=== PATIENT | female | born 1995 | race Two or more races ===

== ENCOUNTER 2021-12-27 10:56 | Emergency (ER) | payer OTHER ==
--- OUTSIDE RECORDS SUMMARY | 2021-12-27 11:01 | XMS REPORT | Continuity of Care Document ---
:1995 Author Organization [facility] t Address [address] [place] [address] Care Team Providers Name Role Phone José Del Real Primary Care Physician Yannick Garcia Attending Clinician Unavailable Kaden Haywood Attending Clinician Unavailable KONG Attending Clinician Unavailable ZITA Attending Clinician Unavailable Attending Clinician Unavailable Singer GILLIAM Attending Clinician Kaden BRADLEY Attending Clinician Unavailable Kaden Bradley DO Attending Clinician Gabrielle Falcon Attending Clinician Unavailable Todd RODRIGUEZ Attending Clinician Unavailable Gabrielle LOVELL Attending Clinician Unavailable SAMI Attending Clinician Unavailable Kong PAPPAS Attending Clinician José Del Real Attending Clinician José Huggins Attending Clinician Unavailable Attending Clinician Unavailable Peyton Moseley MD Attending Clinician Catarino Scott MD Attending Clinician Fellow, [facility] Attending Clinician Unavailable Nilesh PAPPAS Attending Clinician SOFYA HAY Attending Clinician Unavailable Physician, Primary or Family Admitting Clinician Unavailtyrone Phan Admitting Clinician Unavailable Kaden Haywood Admitting Clinician Unavailable KONG Admitting Clinician Unavailable Payers Payer Name Policy Type Policy Number Effective Date Expiration Date S deborah [employer] [id number] 2020 HEALTH CHOICE 00:00:00 MEDICAID COMMUNITY [id number] 2020 [facility] [employer] 00:00:00 [facility] CHC/STAR [id number] [place] [facility] O Advance Directives Directive Decision Effective Termination Comments Source Date Date Healthcare Agents on N/A Univ ersity FileNameRelationshipHealthcare [facility] Agent Medical RelationshipCommunicationTaduke health Branch BurkeMotherHealth Care [phone] (Mobile) [email or web address] Condition Condition Condition Status Onset Resolution Last Treating Co mments Source Name Details Category Date Date Treatment Clinician Date Anemia of Anemia of Disease Active 2020-09 Uni vers mother in mother [place] 03 [place] 00 [place]ical condition condition Bran ch History of History of Disease Active U nivers alcohol alcohol 6-21 ity of abuse abuse 00:00: [place] [address] Medical Branch Heartburn Heartburn Disease Active Uni vers in in 4-26 [place] second [place] second 00 Medi molly trimester trimester Bran ch H/O H/O Disease Active Univers maternal maternal 4-07 ity of cardiomyop cardiomyop [place] athy, athy, 00 Medical currently currently Bran ch Rubella Rubella Disease Active Univers non-immune non-immune 10-30 it y of status, status, 00:00: [place] antepartum antepartum 00 Me dical Branch Abnormal Abnormal Disease Active Unive rs maternal maternal 3-01 ity of glucose glucose 00:00: [place] tolerance, tolerance, 00 Me dical antepartum antepartum Br anch Refused Refused Disease Active Univers influenza influenza 2-25 ity of vaccine vaccine 00:00: [place] [address] Medical Branch UTI in UTI in Disease Active Univers , , 2-25 it y of antepartum antepartum [place] , first , first 00 Medical trimester trimester Bran ch ICD ICD Disease Active 2019-09 Univers (implantab (implantab 1-24 it y of le le 00:00: [place] cardiovert cardiovert 00 Me dical er-defibri er-defibri Br anch llator) in llator) in place place Provoked Provoked Disease Active 2019-09 Unive rs seizure seizure 1-16 ity of 00:00: [place] Medical [facility] Alcohol Alcohol Disease Active 2019-09 Univers withdrawal withdrawal 0-13 it y of 00:00: [place] [address] Medical Branch Obesity Obesity Disease Active Univers (BMI (BMI 8-25 ity of 30-39.9) 30-39.9) 00:00: [place] [address] Medical Branch Acute Acute Disease Active Univers pancreatit pancreatit 8-25 it y of is is 00:00: [place] 00 Medical Branch Obesity in Obesity in Disease Active U nivers 8-25 ity of 00:00: [place] [address] Medical Branch Need for Need for Disease Active Overview: Un ricky MMR MMR 6- Formattin ity of vaccine vaccine 00:00: g of this [place] 00 note Medical might be Branch different from the original. Rubella non immune on 01/30/17-of vero vaccine at next visit Supervisio Supervisio Disease Resolve 2020-12-25 2020-12-25 Univers n of other n of other d 2-25 00:00:00 14:59:36 [place]y of high risk high risk 00:[place] , , 00 Me dical antepartum antepartum Br anch Candidiasi Candidiasi Disease Resolve 2016-092020-10-26 2020-10-26 Univers s of vulva s of vulva d 0-20 00:00:00 16:20:33 ity of and vagina and vagina [place] 00 [place] Contracept Contracept Disease Resolve 20172020-10-26 2020-10-26 Univers eliazar eliazar d 0-05 00:00:00 16:20:21 ity of management management [place] Vaginal Vaginal Disease Resolve 2016-092020-10-26 2020-10-26 Univers discharge discharge d 0-05 00:00:00 16:20:31 ity of 00:00: [place] 00 Medical Branch Vaginal Vaginal Disease Resolve 2020-10-26 2020-10-26 Univers bleeding, bleeding, d 02-19 00:00:00 16:20:29 ity of abnormal abnormal 00:00: [place] 00 Medical Branch Well woman Well woman Disease Resolve 2020-10-26 2020-10-26 Univers exam exam d 01-30 00:00:00 16:20:02 ity of 00:00: [place] 00 Medical Branch Morbid Morbid Disease Resolve 2020-10-26 2020-10-26 Univers obesity obesity d 01-30 00:00:00 16:20:14 ity of with BMI with BMI 00:00: [place] of of 00 Medical 40.0-44.9, 40.0-44.9, Br anch adult adult Bacterial Bacterial Disease Resolve 2020-10-26 2020-10-26 Univers vaginosis vaginosis d 01-30 00:00:00 16:20:38 ity of 00:00: [place] 00 Medical Branch Acute Acute Disease Resolve 2017-01-30 2017-01-30 Univers otitis otitis d 3-02 00:00:00 21:24:44 ity of externa of externa of 00:[place] right ear, right ear, 00 Me dical unspecifie unspecifie Br anch d type d type Allergies, Adverse Reactions, Alerts Allergy Allergy Status Severity Reaction(s) Onset Inactive Treating Comm ents Source Name Type Date Date Clinician No Known DA Active U [facility] [place] 00:[facility]: [facility] 00 are [place] No Known DA Active U [facility] 04-06 [place] 00:[place]: [facility] 00 are [place] No Known DA Active U 2019-09 [facility] [place] 00:[place]: [address] No Known DA Active U 2019-09 [facility] [place] 00:[facility] 00 [facility] No Known DA Active U 2020- [facility] - [place] 00:[facility] [facility] 00 [facility] No Known DA Active U 2020- [facility] [place] 00:[facility]: [facility] 00 [facility] NO KNOWN Drug Active Univers ALLERGIE Class ity of S [facility] Social History Social Habit Start Date Stop Date Quantity Comments Source ASSERTION [facility] Exposure to 2021-12-16 2021-12-26 Not sure [facility] SARS-CoV-2 00:00:00 06:42:00 [place] Medical (event) Branch Alcohol intake 2021-12-26 2021-12-26 Current drinker Unive rsity of 00:00:00 00:00:00 of alcohol [place] Medical (finding) Branch History SDOH 2020-10-26 2020-10-26 5 University o f Alcohol Frequency 00:00:00 00:00:00 [place] M edical Branch History SDOH 2020-10-26 2020-10-26 3 University o f Alcohol Binge 00:00:00 00:00:00 [place] Medic al Branch History SDOH 2020-06-14 2020-06-14 99 University o f Alcohol Std 00:00:00 00:00:00 [place] Medical Drinks Branch Alcohol Comment 2020-06-14 2020-06-14 1 pint of liquor Uni versity of 00:00:00 00:00:00 daily [facility] Tobacco use and 2016-10-08 2016-10-08 Never used Universit y of exposure 00:00:00 00:00:00 [facility] Sex [birth year] At [birth year] Universit y of 00:00:00 00:00:00 [facility] Smoking Status Start Date Stop Date Source Unknown if ever smoked [facility] Never smoker [facility] Medications Ordered Filled Start Stop Current Ordering Indication Dosage Frequency Signature Comments Components Source Medication Medication Date Date Medication? Clinician (SIG) Name Name iopamidol 2021- No [id number] 100mL 100 mL, Univers (ISOVUE 12-26 Intravenou ity o f 370-500 mL) 14:45: 14:45 s, ONCE, 1 [place] injection 00 :00 dose, On Medica l 100 mL Wed Branch 12/26/21 at 0945, Routine ibuprofen No 600mg 600 mg, Uni vers (IBU) 12-26 Oral, ity of tablet 600 13:00: 11:59 ONCE, 1 [place] mg 00 :00 dose, On Medical Wed Branch 12/26/21 at 0800, VJ NaCl 0.9% No 1000mL at 999 Uni vers (NS) bolus 12-26 mL/hr, ity of infusion 12:15: 14:55 1,000 mL, [place] 1,000 mL 00 :00 IV Medical Infusion, Branch ONCE, 1 dose, On Fri12/26/21 at 0715, STAT ketorolac No 30mg 30 mg, Unive rs (TORADOL) 12-24 Slow IV ity of injection 12:15: 11:16 Push, [place] 30 mg 00 :00 ONCE, 1 Medical dose, On Branch Fri12/24/21 at 0715, VJ FENTanyl PF No 50ug 50 mcg, Un ricky (SUBLIMAZE 12-24 Slow IV ity o f (PF)) 11:30: 10:29 Push, [place] injection 00 :00 ONCE, 1 Medical 50 mcg dose, On Branch Fri12/24/21 at 0630, Routine predniSONE 2021- Yes [id number] 50mg Take 5 Univers 10 mg 4-23 01- 9100 tablets by ity of tablet 00:00: 04:59 mouth [place] 00 :00 daily for Medical 5 days. Branch predniSONE 2021- Yes [id number] 50mg Take 5 Univers 10 mg 4-25 05- 9100 tablets by ity of tablet 00:00: 04:59 mouth [place] 00 :00 daily for Medical 5 days. Branch loratadine Yes [id number] 10mg Take 1 Univers 10 mg 2-25 tablet by ity of tablet 00:00: mouth [place] 00 daily. Medical Branch loratadine Yes [id number] 10mg Take 1 Univers 10 mg 2-25 tablet by ity of tablet 00:00: mouth [place] 00 daily. Medical Branch norgestimat 2020-09 Yes [id number] 1{tbl} Take 1 Univers e-ethinyl 2-01 tablet by ity o f estradioL 00:00: mouth [place] (TRI-LO-SPR 00 daily. Medica l INTEC) Branch 0.18/0.215/ 0.25 mg-25 mcg tablet norgestimat 2020-09 Yes [id number] 1{tbl} Take 1 Univers e-ethinyl 2-01 tablet by ity o f estradioL 00:00: mouth [place] (TRI-LO-SPR 00 daily. Medica l INTEC) Branch 0.18/0.215/ 0.25 mg-25 mcg tablet amoxicillin 2020-09 Yes Univer s 875 mg 1-30 ity of tablet 00:00: [place] 00 Medical Branch amoxicillin 2020-09 Yes Univer s 875 mg 1-30 ity of tablet 00:00: [place] 00 Medical Branch MAGNESIUM 2020-09 Yes Take by [facility] ers ORAL 0-20 mouth. ity of 15:02: [place] [address] Medical Branch MAGNESIUM 2020-09 Yes Take by [facility] ers ORAL 0-20 mouth. ity of 15:02: [place] [address] Medical Branch 2020-09 Yes [id number] 1{tbl} Take 1 Univers vitamin 0-15 tablet by ity of w/FA tablet 00:00: mouth [place] 00 daily. Medical Branch docusate 2020-09 Yes [id number] 240mg Take 1 U nivers calcium 240 0-15 capsule by it y of mg capsule 00:00: mouth [place] 00 daily as Medical needed for Branch Constipati on. ferrous 2020-09 Yes [id number] 325mg Take 1 Un ricky sulfate 325 0-15 tablet by ity of mg (65 mg 00:00: mouth 2 [place] iron) 00 (two) Medical tablet times Branch daily. ibuprofen 2020-09 Yes [id number] 600mg Take 1 Univers 600 mg 0-15 tablet by ity of tablet 00:00: mouth [place] 00 every 6 Medical (six) Branch hours as needed (Pain). Take with food or milk. 2020-09 Yes [id number] 1{tbl} Take 1 Univers vitamin 0-15 tablet by ity of w/FA tablet 00:00: mouth [place] 00 daily. Medical Branch docusate 2020-09 Yes [id number] 240mg Take 1 U nivers calcium 240 0-15 capsule by it y of mg capsule 00:00: mouth [place] 00 daily as Medical needed for Branch Constipati on. ferrous 2020-09 Yes [id number] 325mg Take 1 Un ricky sulfate 325 0-15 tablet by ity of mg (65 mg 00:00: mouth 2 [place] iron) 00 (two) Medical tablet times Branch daily. ibuprofen 2020-09 Yes [id number] 600mg Take 1 Univers 600 mg 0-15 tablet by ity of tablet 00:00: mouth [place] 00 every 6 Medical (six) Branch hours as needed (Pain). Take with food or milk. 2020-09 Yes [id number] 1{tbl} Take 1 Univers vitamin 0-15 tablet by ity of w/FA tablet 00:00: mouth [place] 00 daily. Medical Branch 2020-09 Yes [id number] 1{tbl} Take 1 Univers vitamin 0-15 tablet by ity of w/FA tablet 00:00: mouth [place] 00 daily. Medical Branch PROAIR HFA Yes INHALE 2 Uni vers 90 8-09 PUFFS BY ity of mcg/actuati 00:00: MOUTH [place] on inhaler 00 EVERY 4 Medica l HOURS Branch NEEDED DYSPNEA WHEEZING PROAIR HFA Yes INHALE 2 Uni vers 90 8-09 PUFFS BY ity of mcg/actuati 00:00: MOUTH [place] on inhaler 00 EVERY 4 Medica l HOURS Branch NEEDED DYSPNEA WHEEZING metoprolol Yes [id number] 25mg Take 1 Univers succinate 6-21 9104 tablet by ity o f XL (TOPROL 00:00: mouth [place] XL) 25 mg 00 daily. Medical 24 hr Branch tablet metoprolol Yes [id number] 25mg Take 1 Univers succinate 6-21 9104 tablet by ity o f XL (TOPROL 00:00: mouth [place] XL) 25 mg 00 daily. Medical 24 hr Branch tablet metoprolol Yes [id number] 25mg Take 1 Univers succinate 6-21 9104 tablet by ity o f XL (TOPROL 00:00: mouth [place] XL) 25 mg 00 daily. Medical 24 hr Branch tablet metoprolol Yes [id number] 25mg Take 1 Univers succinate 6-21 9104 tablet by ity o f XL (TOPROL 00:00: mouth [place] XL) 25 mg 00 daily. Medical 24 hr Branch tablet metoprolol Yes 25mg QD Take 25 mg M ethodi succinate 5-[address] XL 05:46: daily. [facility]osp[facility] (TOPROL-XL) 22 l 25 mg 24 hr tablet Yes H/O 1{tbl} Take 1 Unive rs Vit 5-04 maternal tablet by ity of Comb.10-Iro 00:00: cardiomyopa mouth [place] n-FA 00 thy, daily. Medical (VITAFOL-OB currently [facility] ) 65-1 mg Tab FLUoxetine Yes 10mg Take 10 mg U nivers (PROZAC) 10 3-29 by mouth ity of mg capsule 18:28: daily. [place] 13 Medical Branch metoprolol Yes Chest pain, 25mg Take 1 Univers succinate 3-24 unspecified tablet by ity of XL (TOPROL 00:00: type mouth [place] XL) 25 mg 00 daily. Medical 24 hr Branch tablet Immunizations Ordered Filled Immunization Date Status Comments [facility] e Immunization Name Name TDAP 2021-03-19 Completed University of 00:00:00 [facility] TDAP 2021-03-19 Completed University of 00:00:00 [facility] TDAP 2021-03-19 Completed University of 00:00:00 [facility] TDAP 2021-03-19 Completed University of 00:00:00 [facility] HPV 2017-01-30 Completed University of 00:00:00 [facility] HPV 2017-01-30 Completed University of 00:00:00 [facility] HPV 2017-01-30 Completed University of 00:00:00 [facility] HPV 2017-01-30 Completed University of 00:00:00 [facility] HPV 2017-01-30 Completed University of 00:00:00 [facility] HPV 2015-07-31 Completed University of 00:00:00 [facility] HPV 2015-07-31 Completed University of 00:00:00 [facility] HPV 2015-07-31 Completed University of 00:00:00 [facility] HPV 2015-07-31 Completed University of 00:00:00 [facility] Td 2010-09-01 Completed University of 00:00:00 [facility] Td 2010-09-01 Completed University of 00:00:00 [place] [facility] Td 2010-09-01 Completed University of 00:00:00 [place] [facility] Td 2010-09-01 Completed University of 00:00:00 [place] [facility] Td 2010-09-01 Completed University of 00:00:00 [place] [facility] HPV 2007-11-26 Completed University of 00:00:00 [place] [facility] HPV 2007-11-26 Completed University of 00:00:00 [place] [facility] HPV 2007-11-26 Completed University of 00:00:00 [place] [facility] HPV 2007-11-26 Completed University of 00:00:00 [place] [facility] HPV 2007-08-13 Completed University of 00:00:00 [place] [facility] HPV 2007-08-13 Completed University of 00:00:00 [place] [facility] HPV 2007-08-13 Completed University of 00:00:00 [facility] Branch HPV 2007-08-13 Completed University of 00:00:00 [facility] Vital Signs Vital Name Observation Time Observation Value Comments Source Systolic blood 2021-12-26 17:00:00 122 mm[Hg] Univer sity of pressure [facility] Diastolic blood 2021-12-26 17:00:00 78 mm[Hg] Unive rsity of pressure [facility] Heart rate 2021-12-26 17:00:00 101 /min [facility] Body temperature 2021-12-26 17:00:00 36.89 Pari [facility] Res[facility] rate 2021-12-26 17:00:00 18 /min [facility] Oxygen saturation in 2021-12-26 17:00:00 97 /min [facility] Arterial blood by [facility] Pulse oximetry [place] Body height 2021-12-26 11:45:00 149.9 cm [facility] Body weight 2021-12-26 11:45:00 81.647 kg [facility] BMI 2021-12-26 11:45:00 36.36 kg/m2 [facility] Systolic blood 2021-12-24 12:00:00 118 mm[Hg] Univer sity of pressure [facility] Diastolic blood 2021-12-24 12:00:00 65 mm[Hg] Unive rsity of pressure [facility] Heart rate 2021-12-24 12:00:00 107 /min Universi ty of [place] Medical [place] Respiratory rate 2021-12-24 12:00:00 18 /min Univ ersity [facility] Oxygen saturation in 2021-12-24 12:00:00 99 /min University of Arterial blood by [facility] Pulse oximetry Branch Body temperature 2021-12-24 10:12:00 37.94 Pari Univ ersity of [facility] Body height 2021-12-24 10:12:00 149.9 cm Universi ty of [facility] Body weight 2021-12-24 10:12:00 81.647 kg Universi ty of [facility] BMI 2021-12-24 10:12:00 36.36 kg/m2 Universi ty of [facility] Systolic blood 2021-08-01 19:32:00 141 mm[Hg] Univer sity of pressure [facility] Diastolic blood 2021-08-01 19:32:00 94 mm[Hg] Unive rsity of [facility] Heart rate 2021-08-01 19:32:00 96 /min Universi ty of [facility] Body temperature 2021-08-01 19:30:00 36.11 Pari Univ ersity [facility] Respiratory rate 2021-08-01 19:30:00 18 /min Univ ersity of [facility] Body height 2021-08-01 19:30:00 149.9 cm Universi ty of [place] [facility] [place] Body weight 2021-08-01 19:30:00 86.955 kg Universi ty of [place] [facility] [place] BMI 2021-08-01 19:30:00 38.72 kg/m2 Universi ty of [facility] Diastolic blood 2021-01-17 05:56:00 56 mm[Hg] [facility] pressure Heart rate 2021-01-17 05:56:00 99 /min [facility] Respiratory rate 2021-01-17 05:56:00 17 /min [facility] Oxygen saturation in 2021-01-17 05:56:00 99 /min [facility] Arterial blood by Pulse oximetry Systolic blood 2021-01-17 05:56:00 106 mm[Hg] [facility] pressure Body temperature 2021-01-17 02:43:14 36.5 Pari [facility] Body height 2021-01-17 02:37:00 149.9 cm [facility] Body weight 2021-01-17 02:37:00 77.111 kg [facility] BMI 2021-01-17 02:37:00 34.34 kg/m2 [facility] Procedures Procedure Date / Time Performing Clinician Source Performed RAPID STREP SCREEN FOR 2021-12-26 16:15:00 [facility]io [facility] GROUP A [facility] LACTIC ACID WHOLE BLOOD 2021-12-26 15:01:00 Singer [facility] CT CHEST PULMONARY 2021-12-26 13:36:22 Singer [facility] ANGIOGRAM [facility] XR CHEST 1 VW 2021-12-26 12:40:58 Singer [facility] LACTIC ACID WHOLE BLOOD 2021-12-26 12:27:00 Singer [facility] LIPASE 2021-12-26 12:26:00 Singer [facility] TROPONIN I 2021-12-26 12:26:00 Singer [facility] COMP. METABOLIC PANEL 2021-12-26 12:26:00 [facility] ([id number]) [facility] CBC WITH DIFF 2021-12-26 12:26:00 Singer [facility] D-DIMER 2021-12-26 12:26:00 Singer [facility] URINALYSIS 2021-12-26 12:26:00 Singer [facility] RAPID INFLUENZA A/B 2021-12-26 12:26:00 Marcio Morgan [facility] N-TERMINAL PRO-BNP 2021-12-26 12:26:00 Singer Marcio [facility] COVID-19 (ID NOW RAPID 2021-12-26 12:26:00 [facility]io [facility] TESTING) [facility] POCT TEST 2021-12-26 11:57:00 Bora Mcdonough [facility] CONSENT/REFUSAL FOR 2021-12-26 11:35:45 Doctor Unassigned, No Un [facility] DIAGNOSIS AND TREATMENT Name [facility] XR WRIST 3+ VW RIGHT 2021-12-24 10:47:04 Janet Bradley [facility] COMP. METABOLIC PANEL 2021-12-24 10:29:00 Janet Bradley [facility] ([id number]) [facility] SEDIMENTATION RATE 2021-12-24 10:29:00 Janet Bradley [facility] sity [facility] CBC WITH DIFF 2021-12-24 10:29:00 Janet Bradley [facility] NOTICE OF PRIVACY 2021-12-24 10:07:44 Doctor Unassigned, No [facility] PRACTICES Name [facility] CONSENT/REFUSAL FOR 2021-12-24 10:05:24 Doctor Unassigned, No [facility] DIAGNOSIS AND TREATMENT Name [facility] US LIMITED 2021-01-17 05:29:20 [facility] HCG QUANTITATIVE, SERUM 2021-01-17 04:55:00 [facility] RH TYPE 2021-01-17 04:55:00 [facility] HC COMPLETE BLD COUNT 2021-01-17 04:27:00 [facility] W/AUTO DIFF Jos[place] BASIC METABOLIC PANEL 2021-01-17 04:27:00 [facility] Joselyn ESTIMATED GFR 2021-01-17 04:27:00 [facility] Joselyn SMEAR REVIEW 2021-01-17 04:27:00 [facility] Joselyn URINE CULTURE 2021-01-17 03:50:00 [facility] Joselyn URINALYSIS SCREEN AND 2021-01-17 03:50:00 [facility] MICROSCOPY, WITH REFLEX Joselyn TO CULTURE Plan of Care Planned Activity Planned Date Details Comments Source Future Scheduled 2023-10-26 Screening for [facility] [place] Test 00:00:00 malignant neoplasm of Medica l Branch cervix (procedure) [code = 018120960] Future Scheduled 2021-10-26 Screening for [facility] [place] Test 00:00:00 Chlamydia trachomatis Medica l Branch (procedure) [code = 696681860] Future Scheduled 2021-10-26 Depression screening Uni versity [facility] Test 00:00:00 (procedure) [code = Medical Branch 591669816] Future Scheduled 2021-05-02 [facility] (Season Ended) [code Medical Branch = INFLUENZA VACCINE (Season Ended)] Future Scheduled 2012 SARS-CoV-2 (COVID-19) Un iversity [facility] Test 00:00:00 Vaccine (1) [code = Medical Branch SARS-CoV-2 (COVID-19) Vaccine (1)] Future Scheduled 2007 DTaP,Tdap,and Td Univers ity [facility] Test 00:00:00 Vaccines (2 - Tdap) Medical Branch [code = DTaP,Tdap,and Td Vaccines (2 - Tdap)] Future Scheduled 2002 [facility]OCOCCAL 0-64 [facility]00 YEARS COMBINED SERIES Medica l Branch (1 of 1 - PPSV23) [code = PNEUMOCOCCAL 0-64 YEARS COMBINED SERIES (1 of 1 - PPSV23)] Future Scheduled COVID-19 [facility] ([facility] [code = COVID-19 VACCINE (1)] Future Scheduled Hepatitis C screening [facility] Test (procedure) [code = 827507695] Future Scheduled Screening for [facility] Test malignant neoplasm of cervix (procedure) [code = 511170345] Future Scheduled [facility]ACCINE [facility] [code = INFLUENZA VACCINE] Encounters Start End Encounter Admission Attending Care Care Encounter Source Date/Time Date/Time Type Type Clinicians Facility Department ID 2021-12-24 Outpatient [facility] [place] 11:17:11 [id number] [facility] 2021-11-24 Outpatient [facility] [place] 13:51:47 [id number] [facility] 2021-01-16 Inpatient [facility] [id number] [facility] 19:48:00 [id number] [facility] [facility] 2020-06-23 Inpatient EM Al HCACR OBSE [id number] [facility] 08:56:00 Radha [id number] Jonathon Hood [facility] 2020-06-22 Inpatient HCACR ALISON [id number] [facility] 14:31:00 [id number] [facility] 2020-05-11 Inpatient EMELIA Haywood, HCACR TELE [id number] [facility] 00:13:00 John [id number] [facility] 2020-05-10 Inpatient HCACR ALISON [id number] H[facility] 21:35:00 [id number] [facility] 2022-03-29 2022-03-29 [facility] [id number] -[id number] Univers 11:40:00 11:40:00 PRASHANT [id number] [facility] 2022-03-26 2022-03-26 [facility] [id number] -20 Univers 13:00:00 13:00:00 PRASHANT [id number] [facility] 2022-03-15 2022-03-15 [facility] [id number] -[id number] Univers 09:20:00 09:20:00 PRASHANT [id number] [facility] 2022-01-02 2022-01-02 [facility] [id number] -20 Univers 10:20:00 10:20:00 TUCKER [id number] ity o f [facility] 2021-12-26 2021-12-26 Emergency X SINGER [facility] ERT [id number] Univers 06:48:00 12:21:00 MARCIO davison [facility] 2021-12-26 2021-12-26 Emergency [facility] [id number] Univers 06:48:00 12:21:00 Marcio CARLOS 350.1.13.10 i ty [facility] 4.2.7.2.686 [facility] [id number] [place] [address] [place] 2021-12-24 2021-12-24 [facility] [id number] Univers 05:16:00 07:32:00 JANET davison [facility] 2021-12-24 2021-12-24 [facility] 1.2.840.114 [id number] [facility] 05:16:00 07:32:00 Janet CARLOS 350.1.13.10 [facility] 4.2.7.2.686 [facility] [id number] [address] 2021-12-04 2021-12-04 Outpatient Todd AHUMADA [facility] [id number] Univers 13:00:00 13:00:00 TUCKER ity o [facility] 2021-11-02 2021-11-02 Emergency EM Terrie, HCANC ALISON [id number] H[facility] 18:35:00 21:46:00 Daniel [id number] Isacct on [facility] 2021-11-02 2021-11-02 Emergency EM Terrie, HCANC HCANC [id number] HCA 18:35:00 21:46:00 Daniel 82 Janett on [facility] 2021-10-30 2021-10-30 Outpatient Todd RODRIGUEZ [facility] [id number] -20 Univers 08:15:00 08:15:00 KEELEY [id number] ity o [facility] 2021-10-26 2021-10-26 Outpatient Todd LOVELL [facility] [id number] Univers 13:00:00 13:26:35 WONDIFUL y [facility] 2021-10-26 2021-10-26 [facility] [id number]-20 Univers 13:00:00 13:00:00 WONDIFUL [id number] ity o [facility] 2021-09-25 2021-09-25 Outpatient Todd GALLARDO [facility] [id number] -[id number] Univers 15:15:00 15:15:00 KEVIN [id number] [facility] 2021-09-25 2021-09-25 Outpatient Todd GALLARDO [facility] [id number] Univers 15:15:00 15:15:00 KEVIN [facility] 2021-09-21 2021-09-21 Outpatient Todd GALLARDO [facility] [id number] -20 Univers 14:45:00 14:45:00 KEVIN [id number] [facility] 2021-09-21 2021-09-21 Outpatient R GALLARDO, [facility] [id number] Univers 14:45:00 14:45:00 KEVIN [facility] 2021-09-14 2021-09-14 [facility] [id number] Univers 09:16:37 23:59:00 [facility] 2021-09-14 2021-09-14 Hospital [facility] 1.2.840.114 [id number] Univers 09:16:37 23:59:00 Encounter Prashant BREANNA 350.1.13.10 ity [facility] [place]2.7.2.[place] [id number] Mt dical [facility] 844 [facility] 2021-09-14 2021-09-14 Outpatient [facility] [id number] -20 Univers 09:20:00 09:20:00 PRASHANT [id number] [facility] 2021-09-07 2021-09-07 Outpatient R [facility] [id number] -20 Univers 09:20:00 09:20:00 PRASHANT [id number] [facility] 2021-09-07 2021-09-07 Outpatient [facility] [id number] Univers 09:20:00 09:20:00 PRASHANT [facility] 2021-08-01 2021-08-01 Office [facility] 1.2.840.114 [id number] Univers 13:18:50 14:31:25 Visit Nadeen Kumar STOREROOM ATTENDANT [facility]1.13.10 [facility].2.7.2.686 Bill as MATERNAL [id number] Med ical & CHILD [address] [place] [address] 2021-07-31 2021-07-31 Emergency X KIRK [facility] ERT [id number] Univers 18:21:00 18:44:00 JANET [facility] 2021-04-06 2021-04-06 Emergency EM VANDANA Huggins ALISON [id number] [facility] 17:20:00 20:52:[address] 2021-04-03 2021-04-03 Routine [facility] 1.2.840.114 [id number] 15:30:57 16:03:13 Nadeen Kumar STOREROOM ATTENDANT 350.1.13.10 Visit REGIONAL 4.2.7.2.686 MATERNAL [id number] & CHILD 110 [facility] 2021-03-30 2021-03-30 Case Esther [facility] 1.2.840.114 [id number] 00:00:00 00:00:00 Management Nadeen Kumar STOREROOM ATTENDANT 350.1.13.10 REGIONAL 4.2.7.2.686 MATERNAL [id number] & CHILD 122 [facility] 2021-03-28 2021-03-28 Ballroom Dance Instructor Sarabjit Patel [facility] 1.2.840.114 [id number] 15:03:08 15:35:08 Visit STOREROOM ATTENDANT 350.1.13.10 REGIONAL 4.2.7.2.686 MATERNAL [id number] & CHILD 369 [facility] 2021-03-28 2021-03-28 Anesthesia NUNO Moseley 1.2.840.114 [id number] 14:18:23 14:18:23 Event Juanita AGOSTO 350.1.13.10 [facility] 4.2.7.2.686 [id number] 022 2021-01-16 2021-01-17 Emergency [place] 1.2.840.1 [id number] Methodi 23:17:00 02:58:00 , Kalyani [address] [facility] 3.430.2.7 Hospit a .3.163973 l .8 2021-01-16 2021-01-16 Travel 1.2.840.1 [id number] [id number] Methodi 00:00:00 00:00:[address] 3.430.2.7 0.2.7.3.698 Ho spita .3.713366 084.8 l .8 Results Test Description Test Time Test Comments Results Result Comments Source LIPASE 2021-12-26 15:51:31 Test Item Value Reference Range Interpretation Comme nts LIPASE (test code = 4765892212) 12 U/L 0-220 Lab Interpretation (test code = 69435-1) Normal [facility] [id number] 13:10:16 Test Item Value Reference Interpretation Comments Range TROPONIN I (test 0.013 ng/mL See_Comment [Automated code = 7737221756) message] The system which generated this result transmitted reference range : <=0.034. The reference range was not used to interpret this result as normal/abnormal . GAUTAM (test code = Reference (Normal) GAUTAM) Range (defined by the 99th percentile reference limit): <= 0.034 ng/mL Note: Cardiac troponin begins to rise 3-4 hours after the onset of ischemia. Repeat in 4-6 hours if the sample was drawn within 3-4 hours of the onset of the symptom and found normal. Diagnosis of myocardial injury is made with acute changes in cTn concentrations with at least one serial sample above the 99th percentile upper reference limit (URL), taken together with the patient's clinical presentation. Biotin has been reported to cause a negative bias, interpret results relative to patient's use of biotin. Lab Interpretation Normal (test code = 98852-9) [facility] [id number] 13:06:55 Test Item Value Reference Range Interpretation Comments NT-proBNP (test code 297 pg/mL See_Comment H [Autom ated = 7181877357) message] The system which generated this result transmitted reference range : <=125. The reference range was not used to interpret this result as normal/abnormal . GAUTAM (test code = GAUTAM) Biotin has been reported to cause a negative bias, interpret results relative to patient's use of biotin. Lab Interpretation Abnormal (test code = 89070-0) [facility] METABOLIC PANEL (59375)2021-12-26 12:58:32 Test Item Value Reference Range Interpretation Comments NA (test code = 138 mmol/L 135-145 0550363144) K (test code = 3.6 mmol/L 3.5-5.0 9607240313) CL (test code = 103 mmol/L 98-108 7177940917) CO2 TOTAL (test code = 22 mmol/L 23-31 L 0210543831) AGAP (test code = 2-16 9911076737) BUN (test code = 11 mg/dL 7-23 7863671840) GLUCOSE (test code = 116 mg/dL 70-110 H 8784663069) CREATININE (test code = 0.80 mg/dL 0.50-1.04 4857223413) TOTAL BILI (test code = 0.7 mg/dL 0.1-1.2 3106250243) CALCIUM (test code = 8.7 mg/dL 8.6-10.6 3911756868) T PROTEIN (test code = 7.5 g/dL 6.3-8.2 9087795898) ALBUMIN (test code = 4.1 g/dL 3.5-5.0 4591657836) ALK PHOS (test code = 125 U/L 34-122 H 2981645436) ALTv (test code = 13 U/L 5-35 2-6) AST(SGOT) (test code = 19 U/L 13-40 4538517537) eGFR (test code = mL/min/1.73m2 1690689475) GAUTAM (test code = GAUTAM) Association of Glomerular Filtration Rate (GFR) and Staging of Kidney Disease* + --+ --+ ------+| GFR (mL/min/1.73 m2) ?| With Kidney Damage ?| ?Without Kidney Damage+ --------+ --------+ +| ?>90 ?| ?Stage one ?| ? Normal ?+ ---+ ---+ -------+| ?60-89 ?| ?Stage two ?| ? Decreased GFR ? + --+ --+ ------+| ?30-59 ?| ?Stage three ?| ? Stage three ? + --+ --+ ------+| ?15-29 ?| ?Stage four ? | ? Stage four ?+ ---+ ---+ -------+| ?<15 (or dialysis) ? ?| ?Stage five ? | ? Stage five ?+ ---+ ---+ -------+ *Each stage assumes the associated GFR level has been in effect for at least three months. ?Stages 1 to 5, with or without kidney disease, indicate chronic kidney disease. Notes: Determination of stages one and two (with eGFR >59mL/min/1.73 m2) requires estimation of kidney damage for at least three months as defined by structural or functional abnormalities of the kidney, manifested by either:Pathological abnormalities or Markers of kidney damage (including abnormalities in the composition of the blood or urine or abnormalities in imaging tests). Lab Interpretation Abnormal (test code = 93095-6) [facility]anoD-[id number] 12:57:56 Test Item Value Reference Interpretation Comments Range D-DIMER (test code = See_Comment H [Autom ated 8394627210) message] The system which generated this result transmitted reference range : <0.41 ?g/mL (FEU). The reference range was not used to interpret this result as normal/abnormal . GAUTAM (test code = This test may be GAUTAM) used in conjunction with a clinical pretest probability (PTP) assessment model to exclude venous thromboembolism (VTE) in patients suspected of deep venous thrombosis (DVT) and pulmonary embolism (PE) A D-Dimer value less than 0.50 ?g/ml (FEU) has a negative predicative value of 96 to 100% (95% CI)and 97 to 100% (95% CI) as an aid in the diagnosis of deep vein thrombosis (DVT) and pulmonary embolism when there is low or moderate pretest probability of PE or DVT. D-Dimer values are expressed in initial fibrinogen equivalent units (FEU)" The assay results should be used with other information, including the clinical context, in forming a diagnosis. Lab Interpretation Abnormal (test code = 22682-2) [facility] WITH [id number] 12:44:53 Test Item Value Reference Range Interpretation Comments WBC (test code = See_Comment H [Automated 1790-2) message] The system which generated this result transmit justice reference range : 4.30 - 11.10 10*3/?L. The reference range was not used to interpret this result as normal/abnormal . RBC (test code = See_Comment [Automated 399-8) message] The system which generated this result transmit justice reference range : 3.93 - 5.25 10*6/?L. The reference range was not used to interpret this result as normal/abnormal . HGB (test code = 11.1 g/dL 11.6-15.0 L 718-7) HCT (test code = 36.0 % 35.7-45.2 4544-3) MCV (test code = 75.6 fL 80.6-95.5 L 787-2) MCH (test code = 23.3 pg 25.9-32.8 L 785-6) MCHC (test code = 30.8 g/dL 31.6-35.1 L 786-4) RDW-SD (test code = 39.6 fL 39.0-49.9 42632-2) RDW-CV (test code = 14.6 % 12.0-15.5 788-0) PLT (test code = See_Comment [Automated 777-3) message] The system which generated this result transmit justice reference range : 166 - 358 10*3/ ?L. The reference range was not u sed to interpret th is result as normal/abnormal . MPV (test code = 10.2 fL 9.5-12.9 20382-2) NRBC/100 WBC (test See_Comment [Automat ed code = 6983842228) message] The system which generated this result transmit justice reference range : 0.0 - 10.0 /100 WBCs. The reference range was not used to interpret this result as normal/abnormal . NRBC x10^3 (test code <0.01 See_Comment [Auto mated = 5918816158) message] The system which generated this result transmit justice reference range : 10*3/?L. The reference range was not used to interpret this result as normal/abnormal . GRAN MAT (NEUT) % 83.2 % (test code = 770-8) IMM GRAN % (test code 0.80 % = 7585860664) LYMPH % (test code = 9.0 % 736-9) MONO % (test code = 6.8 % 5905-5) EOS % (test code = 0.1 % 713-8) BASO % (test code = 0.1 % 706-2) GRAN MAT x10^3(ANC) 12.92 10*3/uL 1.88-7.09 H (test code = 2498880150) IMM GRAN x10^3 (test 0.12 10*3/uL 0.00-0.06 H code = 7207311685) LYMPH x10^3 (test code 1.39 10*3/uL 1.32-3.29 = 731-0) MONO x10^3 (test code 1.05 10*3/uL 0.33-0.92 H = 742-7) EOS x10^3 (test code = <0.03 0.03-0.39 L 711-2) BASO x10^3 (test code <0.03 0.01-0.07 = 704-7) Lab Interpretation Abnormal (test code = 12658-5) [facility] [id number] 11:57:00 Test Item Value Reference Range Interpretation Comments POCT PREG (test code = 1605) Negative On board controls acceptable with Present C Line (test code = 3574) POCT PREG LOT # (test code = HCG [id number] 2998) POCT PREG TEST DATE (test 05/31/2023 code = 3576) Lab Interpretation (test code = Normal 57385-1) [facility]. METABOLIC PANEL (20655)2021-12-24 10:59:11 Test Item Value Reference Range Interpretation Comments NA (test code = 136 mmol/L 135-145 0356113599) K (test code = 4.0 mmol/L 3.5-5.0 5757509570) CL (test code = 99 mmol/L 98-108 1690572225) CO2 TOTAL (test code = 24 mmol/L 23-31 3889369880) AGAP (test code = 2-16 3926886751) BUN (test code = 15 mg/dL 7-23 5646782133) GLUCOSE (test code = 121 mg/dL 70-110 H 6274657185) CREATININE (test code = 0.97 mg/dL 0.50-1.04 1564812037) TOTAL BILI (test code = 0.6 mg/dL 0.1-1.8 7529524875) CALCIUM (test code = 7.8 mg/dL 8.6-10.6 L 5242660689) T PROTEIN (test code = 7.6 g/dL 6.3-8.2 5629060985) ALBUMIN (test code = 4.4 g/dL 3.5-5.0 8829912228) ALK PHOS (test code = 133 U/L 34-122 H 9074880795) ALTv (test code = 16 U/L 5-35 1742-6) AST(SGOT) (test code = 24 U/L 13-40 7219623938) eGFR (test code = mL/min/1.73m2 7444746602) GAUTAM (test code = GAUTAM) Association of Glomerular Filtration Rate (GFR) and Staging of Kidney Disease* + --+ --+ ------+| GFR (mL/min/1.73 m2) ?| With Kidney Damage ?| ?Without Kidney Damage+ --------+ --------+ +| ?>90 ?| ?Stage one ?| ? Normal ?+ ---+ ---+ -------+| ?60-89 ?| ?Stage two ?| ? Decreased GFR ? + --+ --+ ------+| ?30-59 ?| ?Stage three ?| ? Stage three ? + --+ --+ ------+| ?15-29 ?| ?Stage four ? | ? Stage four ?+ ---+ ---+ -------+| ?<15 (or dialysis) ? ?| ?Stage five ? | ? Stage five ?+ ---+ ---+ -------+ *Each stage assumes the associated GFR level has been in effect for at least three months. ?Stages 1 to 5, with or without kidney disease, indicate chronic kidney disease. Notes: Determination of stages one and two (with eGFR >59mL/min/1.73 m2) requires estimation of kidney damage for at least three months as defined by structural or functional abnormalities of the kidney, manifested by either:Pathological abnormalities or Markers of kidney damage (including abnormalities in the composition of the blood or urine or abnormalities in imaging tests). Lab Interpretation Abnormal (test code = 34759-7) [facility]anoSEDIMENT[facility] [id number] 10:53:59 Test Item Value Reference Range Interpretation Comments ESR (test code = See_Comment H [Automated message] 1687327822) The system Mobile[employer] generated this result transmitted ref erence range: 0 - 20 m m/HR. The reference r john was not used to interpret this result as normal/abnor mal. Lab Interpretation (test Abnormal code = 57028-3) [facility] WITH [id number] 10:35:25 Test Item Value Reference Range Interpretation Comments WBC (test code = See_Comment [Automated 6690-2) message] The sy stem which generated this result transmitted reference range : 4.30 - 11.10 10*3/?L. The reference range was not used to interpret this result as normal/abnormal . RBC (test code = See_Comment [Automated 789-8) message] The sy stem which generated this result transmitted reference range : 3.93 - 5.25 10*6/?L. The reference range was not used to interpret this result as normal/abnormal . HGB (test code = 11.5 g/dL 11.6-15.0 L 718-7) HCT (test code = 37.1 % 35.7-45.2 4544-3) MCV (test code = 75.4 fL 80.6-95.5 L 787-2) MCH (test code = 23.4 pg 25.9-32.8 L 785-6) MCHC (test code = 31.0 g/dL 31.6-35.1 L 786-4) RDW-SD (test code = 40.6 fL 39.0-49.9 15431-5) RDW-CV (test code = 14.7 % 12.0-15.5 788-0) PLT (test code = See_Comment [Automated 777-3) message] The sy stem which generated this result transmitted reference range : 166 - 358 10*3/ ?L. The reference r john was not used to interpret this result as normal/abnormal . MPV (test code = 9.6 fL 9.5-12.9 01895-0) NRBC/100 WBC (test See_Comment [Automat ed code = 8950042390) message] The system which generated this result transmitted reference range : 0.0 - 10.0 /100 WBCs. The refer ence range was not u sed to interpret th is result as normal/abnormal . NRBC x10^3 (test code <0.01 See_Comment [Auto mated = 6994704516) message] The s ystem which generated this result transmitted reference range : 10*3/?L. The reference range was not used to interpret this result as normal/abnormal . GRAN MAT (NEUT) % 71.4 % (test code = 770-8) IMM GRAN % (test code 0.60 % = 2383778314) LYMPH % (test code = 15.6 % 736-9) MONO % (test code = 11.6 % 5905-5) EOS % (test code = 0.5 % 713-8) BASO % (test code = 0.3 % 706-2) GRAN MAT x10^3(ANC) 7.66 10*3/uL 1.88-7.09 H (test code = 8836324755) IMM GRAN x10^3 (test 0.06 10*3/uL 0.00-0.06 code = 2311204123) LYMPH x10^3 (test code 1.67 10*3/uL 1.32-3.29 = 731-0) MONO x10^3 (test code 1.24 10*3/uL 0.33-0.92 H = 742-7) EOS x10^3 (test code = 0.05 10*3/uL 0.03-0.39 711-2) BASO x10^3 (test code 0.03 10*3/uL 0.01-0.07 = 704-7) Lab Interpretation Abnormal (test code = 62260-9) [facility] XR L-SPINE 2/3 [id number] 20:54:[address] [facility] [place] BRENDEN JOEL : 1995 Sex: FPatient Name: BRENDEN JOEL Unit No: [id number] EXAMS: CPT CODE: [id number] XR L-SPINE 2/3 VIEWS 09910 B2 EXAM: - XR L-SPINE 2/3 VIEWS INDICATION: TRAUMA COMPARISON: None FINDINGS: For purposes of this dictation, it is assumed that there are 5 lumbar type vertebral bodies. No acute fracture. There is normal alignment of the lumbar spine. Vertebral bodies are normal in height. Disc heights are maintained. IMPRESSION: No acute lumbar spine abnormality. at 2053 Reported and signed by: Nico Fregoso MD CC: Self Referred; Daniel Falcon Jr, MD T echnologist: Ilia Hopper; Estefany Porter Fluoro Time: DAP (): Air Kerma (mGy): Trscr Dt/Tm: 11/02/2021 (2053) by:[email or web address] Electronic Signature Date/Time: 11/02/2021 (2053)Orig Print D/T: S: 11/02/2021 (2056) Name: BRENDEN JOEL [facility] Phys: [place] [address] : 1995 Age: 26 Sex: [place] [address] Loc: [place].ERS Exam Date: 11/02/2021 Status: REG ER PH: FAX: PAGE 1 Signed Report- XR C-SPINE 2-3 [id number] 20:54:[address] [facility] [place]Name: BRENDEN JOEL : 1995 Sex: FPatient Name: BRENDEN JOEL Unit No: [id number] EXAMS: CPT CODE: [id number] XR C-SPINE 2-3 VIEWS 49099 B2 EXAM: - XR C-SPINE 2-3 VIEWS INDICATION: TRAUMA COMPARISON: None FINDINGS: No acute fractures or subluxations. The cervical spine has normal alignment. Vertebral body heights are maintained. Disc heights are maintained. No aggressive osseous lesions. No soft tissue abnormalities. IMPRESSION: No acute cervical spine abnormality. at 2053 Reported and signed by:Nico Fregoso MD CC: Daniel Falcon Jr, MD Technologist: Ilia Hopper; Estefany Porter Fluoro Time: DAP (Gy m2): AirKerma (mGy): Trscr Dt/Tm: 11/02/2021 (2053) by:[email or web address] Electronic Signature Date/Time: 11/02/2021 (2053)Orig Print D/T: S: 11/02/2021 (2056) Name: BRENDEN JOEL [facility] Phys: [place] [address] : 1995 Age: 26 Sex: [place] [address] Loc: [place].ERS Exam Date: 11/02/2021 Status: REG ER PH: FAX: PAGE 1 Signed Report- XR T-SPINE 3 [id number] 20:54:00 [facility] 1995 Sex: FPatient Name: BRENDEN JOEL Unit No: [id number] EXAMS: CPT CODE: [id number] XR T-SPINE 3 VIEWS 55474 B2 EXAM: - XR T-SPINE 3 VIEWS INDICATION: TRAUMA COMPARISON: None FINDINGS: No acute fracture. There is normal alignment of the thoracic spine. Vertebral bodies are normal in height. Disc heights are maintained. IMPRESSION: No acute thoracic spine abnormality. Holli ctronically Signed by Nico Fregoso MD on 11/02/2021 at 2053 Reported and signed by: Nico Fregoso MD CC: Daniel Falcon Jr, MD Technologist: Ilia Hopper; Estefany Porter Fluoro Time: DAP (Gy m2): Air Kerma (mGy): Trscr Dt/Tm: 11/02/2021 (2053) by:[email or web address] Elec tronic Signature Date/Time: 11/02/2021 (2053)Orig Print D/T: S: 11/02/2021 (2056) Name: JOELBRENDEN Z [facility] [place] Phys: [place] [address] : 1995 Age: 26 Sex: [place] [address] Loc: [place].ERS Exam Date: 11/02/2021 Status: REG ER PH: FAX: PAGE 1 Signed ReportCoronavirus 2019 nCoV [id number] 19:15:00 Test Item Value Reference Range Interpretation Comments Coronavirus 2019 Negative Negative This test h ad not been FDA nCoV Bedside cleared or appr steven; This (test code = testhas been au thorized by [id number]) FDA under an E UA for use byauthorized la boratories only for the de tection of nucleicacid fro m SARS-CoV-2, not for any oth er viruses orpathogens. ID NOW COVID-19 assay performed on the ID NOWInstrument i s a rapid molecular in vi tro diagnostic testutilizing a n isothermal nucleic acid amplificationte chnology intended for th e qualitative detection of nu cleicacid from the SARS-CoV-2 viral RNA in direct nasal,na sopharyngeal or throat swabs from individuals who aresuspected of COVID-19 by their healthcare prov ider withinthe first seven day s of the onset of symptoms. Te sting isauthorized fo r laboratories certified under the ClinicalLaborat ory Improvement Holly ndments of 1987 (CLIA), UA RFLX MICR CULT IF [id number] 19:03:00 Test Item Value Reference Range Interpretation Comments UA COLOR (test code = COLU) YELLOW YELLOW UA APPEARANCE (test code = CLEAR CLEAR APPU) UA GLUCOSE DIPSTICK (test NEGATIVE NEGATIVE code = DGLUU) UA BILIRUBIN DIPSTICK (test NEGATIVE NEGATIVE code = BILU) UA KETONE DIPSTICK (test code NEGATIVE NEGATIVE = KETU) UA SPECIFIC GRAVITY (test 1.021 1.005-1.025 N code = SGU) UA BLOOD DIPSTICK (test code NEGATIVE NEGATIVE = SANTANA) UA PH DIPSTICK (test code = 7.0 5.0-8.0 KISHORE) UA PROTEIN DIPSTICK (test 1+ NEGATIVE A code = PROU) UA UROBILINOGEN DIPSTICK 2.0 EU/dL 0.1-0.2 A (test code = URO) UA NITRITE DIPSTICK (test POSITIVE NEGATIVE A code = SAMMY) UA LEUKOCYTE ESTERASE TRACE NEGATIVE A DIPSTICK (test code = LEUU) UA MICROSCOPIC NEEDED? (test YES NO A code = UAMICRO) UA WBC (test code = WBCU) 11-20 /hpf 0-3 A UA RBC (test code = RBCU) 0-2 /hpf 0-3 UA BACTERIA (test code = MANY /HPF NEGATIVE BACU) UA SQUAMOUS CELLS (test code Few /HPF FEW = SQU) UA MUCUS (test code = MUCU) OCCASIONAL /lpf Indication for culture: Suprapubic PainSpecimen Description: CLEAN CATCHHCG [id number] 18:38:00 Test Item Value Reference Range Interpretation Comments HCG SERUM (test 3856 mIU/mL 0-3 H Gestational Age code = HCG) hCG ( mIU/mL)0-1 weeks 5-501-2 weeks 50-5002-3 wee ks 100-5,0003-4 weeks 500-10,0004-5 weeks 1,000-50,0005-6 weeks 10,000-100,0006 -8 weeks 15,000-200,0002 -3 months 10,000-100, 000 WHEN BORDERLINE RESU LTS ARE ENCOUNTERED, SHIMA KANG SAMPLESSHOULD B E REDRAWN 48 HOURS LATER. DATE OF LAST MENSTRUAL PERIOD: 04/05/21- PREG AFTER 1ST [id number] 18:25:00[facility] [place]: BRENDEN JOEL : 1995 Sex: FPatient Name: BRENDEN JOEL Unit No: [id number] EXAMS: CPT CODE: [id number] US PREG AFTER 1ST TRI 40782 Obstetrical ultrasound History: Pelvic Pain Comparison: None at this time Location: 5 A single intrauterine is identified in the vertex presentation. The maternal cervix appears closed and measures approximately 4 cm in length. The placenta is anterior in location. A heartbeat is identified and the heart rate is approximately 169 beats per minute. anatomy was not assessed. Biparietal diameter 7.4 cm, Head circumference 25.7 cm, Abdominal circumference 27.9 cm, Femur length 5.5 cm, IMPRESSION: A single intrauterine pregnancyis identified. According to ultrasound size criteria, the estimated gestational age of the fetus is approximately 28 weeks 6 days. Using a previously assigned estimated date of delivery of June 18, 2021, the estimated weight of the fetus is approximately 67 percentile. The estimated weight is approximately 3 lbs. 7 oz.. at 1825 Reported and signed by: Mike Orosco MD Name: BRENDEN JOEL [facility] Phys: [place] [address] : 1995 Age: 26 Sex: [place] [id number] Loc: [place].ERS Exam Date: 04/06/2021 Status: REG ER PH: FAX: PAGE 1 Signed Report (CONTINUED) Patient Name: BRENDEN JOEL Unit No: [id number] EXAMS: CPT CODE: [id number] US PREG AFTER TRI 19747 <Continued> CC: David Huggins MD Technologist: Genie Castillo Probe: Trscr Dt/Tm: 04/06/2021 (1824) by:GuiPMT Electronic Signature Date/Time: 04/06/2021 (1824) Name: BRENDEN JOEL [facility] [place] Phys: [place] [address] : 1995 Ag e: 26 Sex: [place] [id number] Loc: [place].ERS Exam Date: 04/06/2021 Status: REG ER PH: FAX: PAGE 2 Signed ReportBASIC METABOLIC [id number] 18:24:00 Test Item Value Reference Range Interpretation Comments SODIUM (test code 136 mmol/L 135-145 N = NA) POTASSIUM (test 3.6 mmol/L 3.5-5.1 N code = K) CHLORIDE (test 106 mmol/L 98-107 N code = CL) CARBON DIOXIDE 23 mmol/L 21-32 N (test code = CO2) ANION GAP (test 10.6 2.0-16.0 N code = GAP) GLUCOSE (test code 118 mg/dL 65-99 H = GLU) BLOOD UREA 7 mg/dL 4-23 N NITROGEN (test code = BUN) GLOMERULAR >=60 max >60 The estimated FILTRATION RATE estimate ml/min glomerula r (test code = GFR) filtration rate is computed usingpatient ra ce, age (>18), sex, and serum creatinin e. If anyof the neede d data elements a re missing the Laboratory arpita ot compute an estimation of t he glomerular filtration rate . CREATININE (test 0.6 mg/dL 0.6-1.5 N code = CREAT) BUN/CREATININE 11.7 12.0-20.0 L RATIO (test code = BUN/CREA) CALCIUM (test code 8.6 mg/dL 8.5-10.1 N = CA) LIVER FUNCTION [id number] 18:24:00 Test Item Value Reference Range Interpretation Comments TOTAL PROTEIN 7.5 g/dL 6.4-8.2 N (test code = PROT) ALBUMIN (test code 2.6 g/dL 3.4-5.0 L = ALB) GLOBULIN (test 4.9 g/dL 2.3-3.5 H code = GLOB) BILIRUBIN TOTAL 0.2 mg/dL 0.2-1.2 N Use of this assay is not (test code = BILT) recommend ed for patients undergoingtreat ment with Eltrombopag due to the potential for falselyelevated results. BILIRUBIN DIRECT < 0.1 mg/dL 0.0-0.3 N (test code = BILD) BILIRUBIN INDIRECT 0.1 mg/dL 0.0-0.8 N (test code = BILIND) SGOT/AST (test 13 U/L 15-37 L code = AST) SGPT/ALT (test 13 U/L 6-50 N code = ALT) ALKALINE 103 U/L 45-117 N PHOSPHATASE (test code = ALKP) CBC W/AUTO [id number] 18:06:00 Test Item Value Reference Range Interpretation Comments WHITE BLOOD CELL (test code = 12.4 10 3/uL 4.5-11.0 H WBC) RED BLOOD CELL (test code = 4.44 10 6/uL 3.50-5.50 N RBC) HEMOGLOBIN (test code = HGB) 11.0 g/dL 12.0-16.0 L HEMATOCRIT (test code = HCT) 35.0 % 37.0-55.0 L MEAN CELL VOLUME (test code = 79 fL 81-102 L MCV) MEAN CELL HGB (test code = 24.8 pg 26.0-34.0 L MCH) MEAN CELL HGB CONCENTRATION 31.4 g/dL 31.0-37.0 N (test code = MCHC) RED CELL DISTRIBUTION WIDTH 15.7 % 11.6-14.4 H (test code = RDW) PLATELET COUNT (test code = 236 10 3/uL 150-400 N PLT) MEAN PLATELET VOLUME (test 10.6 fL 9.0-12.6 N code = MPV) NEUTROPHIL % (test code = NT%) 78.5 % 33.0-76.0 H IMMATURE GRANULOCYTE % (test 1.1 % 0.0-1.0 H code = IG%) LYMPHOCYTE % (test code = LY%) 12.6 % 14.0-56.4 L MONOCYTE % (test code = MO%) 6.2 % 0.0-12.9 N EOSINOPHIL % (test code = EO%) 1.4 % 0.0-7.0 N BASOPHIL % (test code = BA%) 0.2 % 0-2.0 N NUCLEATED RBC % (test code = 0.0 % 0-0.2 N NRBC%) NEUTROPHIL # (test code = NT#) 9.69 10 3/uL 1.5-7.0 H IMMATURE GRANULOCYTE # (test 0.140 x10 3/uL 0.000-0.100 H code = IG#) LYMPHOCYTE # (test code = LY#) 1.56 10 3/uL 1.50-4.00 N MONOCYTE # (test code = MO#) 0.76 10 3/uL 0.20-0.80 N EOSINOPHIL # (test code = EO#) 0.17 10 3/uL 0.0-0.5 N BASOPHIL # (test code = BA#) 0.03 10 3/uL 0.0-0.1 N US [id number] 06:11:28EXAMINATION: US LIMITED CLINICAL HISTORY: 25 years Female 18wks preg lower abdominal cramping TECHNIQUE: Grayscale and color Doppler analysis of the pelvis was performed via transabdominal approach. COMPARISON: None. IMPRESSION: Limited evaluation demonstrates a single intrauterine in breech presentation. Estimated gestational age is 18 weeks and 3 days which gives an EDDof 06/17/2021. cardiac activity is identified with an average rate of 161 bpm. The placenta is anterior and there is no evidence of placenta previa. Placenta grade 1. No placental abnormality identified. Amniotic fluid volume is within normal limits given the gestational age. Cervical length is 4.23 cm. Estimated weight is 229 grams (Hadlock 58.6%) SUMMARY: Viable intrauterine . [id number] Interface, Radiology Results - 01/17/2021 1:14 AM CDT EXAMINATION: US LIMITEDCLINICAL HISTORY: 25 years Female 18wks preg lower abdominal crampingTECHNIQUE: Grayscale and color Doppler analysis of the pelvis was performed via transabdominal approach.COMPARISON: None.IMPRESSION:Limited evaluation demonstrates a single intrauterine in breech presentation. Estimated gestational age is 18 weeks and 3 days which gives an DESTINY of 06/17/2021. cardiac activity is identified with an average rate of 161 bpm.The placenta is anterior and there is no evidence of placenta previa. Placenta grade 1. No placental abnormality identified.Amniotic fluid volume is within normal limits given the gestational age.Cervical length is 4.23 cm.Estimated weight is 229 grams (Hadlock 58.6%)SUMMARY:Viable intrauterine .[id number] CenterU[facility] [id number] 04:12:17 Test Item Value Reference Range Interpretation Comments Urine culture (test code = SEE COMMENT [id number]) [facility] [id number] 07:46:00 Test Item Value Reference Range Interpretation Comments SODIUM (test code = 137.0 mmol/L 133-144 N NA) POTASSIUM (test code 3.6 mmol/L 3.5-5.1 N = K) CHLORIDE (test code 107 mmol/L 95-105 H = CL) CARBON DIOXIDE (test 25 mmol/L 21-32 N code = CO2) ANION GAP (test code 5.0 GAP calc 4.0-15.0 N = GAP) GLUCOSE (test code = 83 MG/DL 70-110 N GLU) BLOOD UREA NITROGEN 2 MG/DL 7-18 L (test code = BUN) GLOMERULAR 125 estGFR >60 The estimated FILTRATION RATE glomerular (test code = GFR) filtration rate is computed usingpatient ra ce, age, sex, and s brandyn creatinine. If any of theneeded da ta elements are mi ssing the Laboratory can notcompute an estimation of t he glomerular filtration rate .The GFR value units = ml/min/1.73 met er squared. EstimatedGFR va lues above 60 should be interpreted as >60, not anexact number.--- DRUG DOSAGE ALERT -- - Drug dosage adjustments uti lize different calculationpara meter s. CREATININE (test 0.59 MG/DL 0.55-1.30 N Results may be code = CREAT) depressed if p atient is takingN-Acetylc ystei ne (NAC) and Metamizole (Dipyrone). TOTAL PROTEIN (test 6.0 G/DL 6.4-8.2 L code = PROT) ALBUMIN (test code = 2.5 G/DL 3.4-5.0 L ALB) ALBUMIN/GLOBULIN 0.7 RATIO 1.2-2.2 L RATIO (test code = A/G) CALCIUM (test code = 8.6 MG/DL 8.5-10.1 N CA) BILIRUBIN TOTAL 2.40 MG/DL 0.00-1.00 H (test code = BILT) BILIRUBIN DIRECT 1.90 MG/DL 0.00-0.30 H (test code = BILD) BILIRUBIN INDIRECT 0.50 MG/DL 0.2-1.3 N (test code = BILIND) SGOT/AST (test code 194 Unit/L 15-37 H = AST) SGPT/ALT (test code 96 Unit/L 12-78 H = ALT) ALKALINE PHOSPHATASE 191 Unit/L 45-117 H TOTAL (test code = ALKP) INDEX HEMOLYSIS 1 NORMAL <10 1 NORMAL (test code = MG Index/DL HEMINDEX) INDEX ICTERIC (test 2 TRACE 2-5 1 NORMAL code = ICTINDEX) MG Index/DL INDEX LIPEMIA (test 1 NORMAL <50 1 NORMAL code = LIPINDEX) MG Index/DL COMPREHENSIVE METABOLIC [id number] 07:33:00 Test Item Value Reference Range Interpretation Comments SODIUM (test code = NA) 137.0 mmol/L 133-144 N POTASSIUM (test code = K) 3.6 mmol/L 3.5-5.1 N CHLORIDE (test code = CL) 107 mmol/L 95-105 H CARBON DIOXIDE (test code 25 mmol/L 21-32 N = CO2) ANION GAP (test code = 5.0 GAP calc 4.0-15.0 N GAP) GLUCOSE (test code = GLU) 83 MG/DL 70-110 N BLOOD UREA NITROGEN (test 2 MG/DL 7-18 L code = BUN) CREATININE (test code = MG/DL 0.55-1.30 CREAT) TOTAL PROTEIN (test code G/DL 6.4-8.2 = PROT) ALBUMIN (test code = ALB) 2.5 G/DL 3.4-5.0 L ALBUMIN/GLOBULIN RATIO RATIO 1.2-2.2 (test code = A/G) CALCIUM (test code = CA) 8.6 MG/DL 8.5-10.1 N BILIRUBIN TOTAL (test MG/DL 0.00-1.00 code = BILT) BILIRUBIN DIRECT (test MG/DL 0.00-0.30 code = BILD) BILIRUBIN INDIRECT (test MG/DL 0.2-1.3 code = BILIND) SGOT/AST (test code = Unit/L 15-37 AST) SGPT/ALT (test code = Unit/L 12-78 ALT) ALKALINE PHOSPHATASE Unit/L 45-117 TOTAL (test code = ALKP) INDEX HEMOLYSIS (test 1 NORMAL <10 MG 1 NORMAL code = HEMINDEX) Index/DL INDEX ICTERIC (test code 2 TRACE 2-5 MG 1 NORMAL = ICTINDEX) Index/DL INDEX LIPEMIA (test code 1 NORMAL <50 MG 1 NORMAL = LIPINDEX) Index/DL CBC W/AUTO [id number] 07:06:00 Test Item Value Reference Range Interpretation Comments WHITE BLOOD CELL (test code = 4.2 K/mm3 4.1-12.1 N WBC) RED BLOOD CELL (test code = RBC) 3.13 M/mm3 3.8-5.5 L HEMOGLOBIN (test code = HGB) 8.0 G/DL 10.6-15.8 L HEMATOCRIT (test code = HCT) 28.4 % 31.8-47.4 L MEAN CELL VOLUME (test code = 90.7 fL 80.1-101.1 N MCV) MEAN CELL HGB (test code = MCH) 25.6 pg 25.3-35.3 N MEAN CELL HGB CONCETRATION (test 28.2 G/DL 32.7-35.1 L code = MCHC) RED CELL DISTRIBUTION WIDTH 24.0 % 12.2-16.4 H (test code = RDW) RED CELL DISTRIBUTION WIDTH 77.9 fL 36.4-46.3 H (test code = RDW-SD) PLATELET COUNT (test code = PLT) 151 K/mm3 155-337 L MEAN PLATELET VOLUME (test code 11.4 fL 6.8-11.2 H = MPV) GRANULOCYTE % (test code = GR%) 52.8 % 37.8-82.6 N IMMATURE GRANULOCYTE % (test 0.7 % 0.0-2.0 N code = IG%) LYMPHOCYTE % (test code = LY%) 31.8 % 14.1-45.4 N MONOCYTE % (test code = MO%) 9.7 % 2.5-11.7 N EOSINOPHIL % (test code = EO%) 4.8 % 0.0-6.2 N BASOPHIL % (test code = BA%) 0.2 % 0.0-2.1 N NUCLEATED RBC % (test code = 0.0 /100WBC% 0.0-1.0 N NRBC%) GRANULOCYTE # (test code = GR#) 2.22 k/mm3 2.0-13.7 N IMMATURE GRANULOCYTE # (test 0.03 K/mm3 0.00-0.03 N code = IG#) LYMPHOCYTE # (test code = LY#) 1.34 K/mm3 0.6-3.8 N MONOCYTE # (test code = MO#) 0.41 K/mm3 0.11-0.59 N EOSINOPHIL # (test code = EO#) 0.20 K/mm3 0.0-0.4 N BASOPHIL # (test code = BA#) 0.01 K/mm3 0.0-0.1 N NUCLEATED RBC # (test code = 0.00 K/mm3 0.0-0.05 N NRBC#) SMEAR PERIPHERAL [id number] 13:03:00 Test Item Value Reference Range Interpretation Comments SMEAR PERIPHERAL SMEAR SMEAR HOLD IS SMEAR BE ING HELD BLOOD (test code = PREPARED/READY FOR A P ATHOLOGY BLDSM) COMMENT REVIEW? Y.IF SM EAR IS FOR PHYSICIA N REVIEW,THE SMEA R WILL BE HELD IN THE HEMATOLOGY LAB FOR 7 DAYS. COMPREHENSIVE METABOLIC [id number] 05:10:00 Test Item Value Reference Range Interpretation Comments SODIUM (test code = 139.0 mmol/L 133-144 N NA) POTASSIUM (test code 3.8 mmol/L 3.5-5.1 N = K) CHLORIDE (test code 109 mmol/L 95-105 H = CL) CARBON DIOXIDE (test 25 mmol/L 21-32 N code = CO2) ANION GAP (test code 5.0 GAP calc 4.0-15.0 N = GAP) GLUCOSE (test code = 81 MG/DL 70-110 N GLU) BLOOD UREA NITROGEN 2 MG/DL 7-18 L (test code = BUN) GLOMERULAR 196 estGFR >60 The estimated FILTRATION RATE glomerular (test code = GFR) filtration rate is computed usingpatient ra ce, age, sex, and s brandyn creatinine. If any of theneeded da ta elements are mi ssing the Laboratory can notcompute an estimation of t he glomerular filtration rate .The GFR value units = ml/min/1.73 met er squared. EstimatedGFR va lues above 60 should be interpreted as >60, not anexact number.--- DRUG DOSAGE ALERT -- - Drug dosage adjustments uti lize different calculationpara meter s. CREATININE (test 0.40 MG/DL 0.55-1.30 L Results may be code = CREAT) depressed if p atient is takingN-Acetylc ystei ne (NAC) and Metamizole (Dipyrone). TOTAL PROTEIN (test 5.8 G/DL 6.4-8.2 L code = PROT) ALBUMIN (test code = 2.5 G/DL 3.4-5.0 L ALB) ALBUMIN/GLOBULIN 0.8 RATIO 1.2-2.2 L RATIO (test code = A/G) CALCIUM (test code = 8.2 MG/DL 8.5-10.1 L CA) BILIRUBIN TOTAL 2.49 MG/DL 0.00-1.00 H (test code = BILT) BILIRUBIN DIRECT 1.92 MG/DL 0.00-0.30 H (test code = BILD) BILIRUBIN INDIRECT 0.57 MG/DL 0.2-1.3 N (test code = BILIND) SGOT/AST (test code 258 Unit/L 15-37 H = AST) SGPT/ALT (test code 110 Unit/L 12-78 H = ALT) ALKALINE PHOSPHATASE 192 Unit/L 45-117 H TOTAL (test code = ALKP) INDEX HEMOLYSIS 1 NORMAL <10 1 NORMAL (test code = MG Index/DL HEMINDEX) INDEX ICTERIC (test 2 TRACE 2-5 1 NORMAL code = ICTINDEX) MG Index/DL INDEX LIPEMIA (test 1 NORMAL <50 1 NORMAL code = LIPINDEX) MG Index/DL COMPREHENSIVE METABOLIC [id number] 05:09:00 Test Item Value Reference Range Interpretation Comments SODIUM (test code = 139.0 mmol/L 133-144 N NA) POTASSIUM (test code 3.8 mmol/L 3.5-5.1 N = K) CHLORIDE (test code 109 mmol/L 95-105 H = CL) CARBON DIOXIDE (test 25 mmol/L 21-32 N code = CO2) ANION GAP (test code 5.0 GAP calc 4.0-15.0 N = GAP) GLUCOSE (test code = 81 MG/DL 70-110 N GLU) BLOOD UREA NITROGEN 2 MG/DL 7-18 L (test code = BUN) GLOMERULAR 196 estGFR >60 The estimated FILTRATION RATE glomerular (test code = GFR) filtration rate is computed usingpatient ra ce, age, sex, and s brandyn creatinine. If any of theneeded da ta elements are mi ssing the Laboratory can notcompute an estimation of t he glomerular filtration rate .The GFR value units = ml/min/1.73 met er squared. EstimatedGFR va lues above 60 should be interpreted as >60, not anexact number.--- DRUG DOSAGE ALERT -- - Drug dosage adjustments uti lize different calculationpara meter s. CREATININE (test 0.40 MG/DL 0.55-1.30 L Results may be code = CREAT) depressed if p atient is takingN-Acetylc ystei ne (NAC) and Metamizole (Dipyrone). TOTAL PROTEIN (test G/DL 6.4-8.2 code = PROT) ALBUMIN (test code = 2.5 G/DL 3.4-5.0 L ALB) ALBUMIN/GLOBULIN RATIO 1.2-2.2 RATIO (test code = A/G) CALCIUM (test code = 8.2 MG/DL 8.5-10.1 L CA) BILIRUBIN TOTAL MG/DL 0.00-1.00 (test code = BILT) BILIRUBIN DIRECT 1.92 MG/DL 0.00-0.30 H (test code = BILD) BILIRUBIN INDIRECT MG/DL 0.2-1.3 (test code = BILIND) SGOT/AST (test code Unit/L 15-37 = AST) SGPT/ALT (test code Unit/L 12-78 = ALT) ALKALINE PHOSPHATASE Unit/L 45-117 TOTAL (test code = ALKP) INDEX HEMOLYSIS 1 NORMAL <10 1 NORMAL (test code = MG Index/DL HEMINDEX) INDEX ICTERIC (test 2 TRACE 2-5 1 NORMAL code = ICTINDEX) MG Index/DL INDEX LIPEMIA (test 1 NORMAL <50 1 NORMAL code = LIPINDEX) MG Index/DL CBC W/AUTO [id number] 04:50:00 Test Item Value Reference Range Interpretation Comments WHITE BLOOD CELL (test code = 3.5 K/mm3 4.1-12.1 L WBC) RED BLOOD CELL (test code = RBC) 2.86 M/mm3 3.8-5.5 L HEMOGLOBIN (test code = HGB) 7.4 G/DL 10.6-15.8 L HEMATOCRIT (test code = HCT) 25.4 % 31.8-47.4 L MEAN CELL VOLUME (test code = 88.8 fL 80.1-101.1 N MCV) MEAN CELL HGB (test code = MCH) 25.9 pg 25.3-35.3 N MEAN CELL HGB CONCETRATION (test 29.1 G/DL 32.7-35.1 L code = MCHC) RED CELL DISTRIBUTION WIDTH 23.2 % 12.2-16.4 H (test code = RDW) RED CELL DISTRIBUTION WIDTH 74.6 fL 36.4-46.3 H (test code = RDW-SD) PLATELET COUNT (test code = PLT) 124 K/mm3 155-337 L MEAN PLATELET VOLUME (test code 10.4 fL 6.8-11.2 N = MPV) GRANULOCYTE % (test code = GR%) 48.4 % 37.8-82.6 N IMMATURE GRANULOCYTE % (test 0.6 % 0.0-2.0 N code = IG%) LYMPHOCYTE % (test code = LY%) 34.2 % 14.1-45.4 N MONOCYTE % (test code = MO%) 11.3 % 2.5-11.7 N EOSINOPHIL % (test code = EO%) 4.9 % 0.0-6.2 N BASOPHIL % (test code = BA%) 0.6 % 0.0-2.1 N NUCLEATED RBC % (test code = 0.0 /100WBC% 0.0-1.0 N NRBC%) GRANULOCYTE # (test code = GR#) 1.67 k/mm3 2.0-13.7 L IMMATURE GRANULOCYTE # (test 0.02 K/mm3 0.00-0.03 N code = IG#) LYMPHOCYTE # (test code = LY#) 1.18 K/mm3 0.6-3.8 N MONOCYTE # (test code = MO#) 0.39 K/mm3 0.11-0.59 N EOSINOPHIL # (test code = EO#) 0.17 K/mm3 0.0-0.4 N BASOPHIL # (test code = BA#) 0.02 K/mm3 0.0-0.1 N NUCLEATED RBC # (test code = 0.00 K/mm3 0.0-0.05 N NRBC#) BASIC METABOLIC [id number] 16:36:00 Test Item Value Reference Range Interpretation Comments SODIUM (test code = 140.0 mmol/L 133-144 N NA) POTASSIUM (test code 3.4 mmol/L 3.5-5.1 L = K) CHLORIDE (test code 108 mmol/L 95-105 H = CL) CARBON DIOXIDE (test 26 mmol/L 21-32 N code = CO2) ANION GAP (test code 6.0 GAP calc 4.0-15.0 N = GAP) GLUCOSE (test code = 99 MG/DL 70-110 N GLU) BLOOD UREA NITROGEN 2 MG/DL 7-18 L (test code = BUN) CREATININE (test 0.60 MG/DL 0.55-1.30 N Results may be code = CREAT) depressed if patient is takingN-Acetylc yste ine (NAC) and Metamizole (Dipyrone). CALCIUM (test code = 8.1 MG/DL 8.5-10.1 L CA) INDEX HEMOLYSIS 1 NORMAL <10 MG 1 NORMAL (test code = Index/DL HEMINDEX) INDEX ICTERIC (test 2 TRACE 2-5 MG 1 NORMAL code = ICTINDEX) Index/DL INDEX LIPEMIA (test 1 NORMAL <50 MG 1 NORMAL code = LIPINDEX) Index/DL CBC W/AUTO [id number] 16:26:00 Test Item Value Reference Range Interpretation Comments WHITE BLOOD CELL (test code = 3.0 K/mm3 4.1-12.1 L WBC) RED BLOOD CELL (test code = RBC) 3.14 M/mm3 3.8-5.5 L HEMOGLOBIN (test code = HGB) 8.0 G/DL 10.6-15.8 L HEMATOCRIT (test code = HCT) 28.2 % 31.8-47.4 L MEAN CELL VOLUME (test code = 89.8 fL 80.1-101.1 N MCV) MEAN CELL HGB (test code = MCH) 25.5 pg 25.3-35.3 N MEAN CELL HGB CONCETRATION (test 28.4 G/DL 32.7-35.1 L code = MCHC) RED CELL DISTRIBUTION WIDTH 23.4 % 12.2-16.4 H (test code = RDW) RED CELL DISTRIBUTION WIDTH 76.4 fL 36.4-46.3 H (test code = RDW-SD) PLATELET COUNT (test code = PLT) 137 K/mm3 155-337 L MEAN PLATELET VOLUME (test code 11.6 fL 6.8-11.2 H = MPV) GRANULOCYTE % (test code = GR%) 51.7 % 37.8-82.6 N IMMATURE GRANULOCYTE % (test 1.0 % 0.0-2.0 N code = IG%) LYMPHOCYTE % (test code = LY%) 32.2 % 14.1-45.4 N MONOCYTE % (test code = MO%) 11.8 % 2.5-11.7 H EOSINOPHIL % (test code = EO%) 2.6 % 0.0-6.2 N BASOPHIL % (test code = BA%) 0.7 % 0.0-2.1 N NUCLEATED RBC % (test code = 0.0 /100WBC% 0.0-1.0 N NRBC%) GRANULOCYTE # (test code = GR#) 1.57 k/mm3 2.0-13.7 L IMMATURE GRANULOCYTE # (test 0.03 K/mm3 0.00-0.03 N code = IG#) LYMPHOCYTE # (test code = LY#) 0.98 K/mm3 0.6-3.8 N MONOCYTE # (test code = MO#) 0.36 K/mm3 0.11-0.59 N EOSINOPHIL # (test code = EO#) 0.08 K/mm3 0.0-0.4 N BASOPHIL # (test code = BA#) 0.02 K/mm3 0.0-0.1 N NUCLEATED RBC # (test code = 0.00 K/mm3 0.0-0.05 N NRBC#) RETICULOCYTE [id number] 08:11:00 Test Item Value Reference Range Interpretation Comments RED BLOOD CELL (test code = RBC) 3.09 M/mm3 3.8-5.5 L RETIC COUNT (AUTOMATED) (test 2.44 % auto 0.63-2.24 H code = RETICA) RETICULOCYTE NUMBER (test code = 0.075 M/mm3 0.0276-0.0735 H RETN) IMMATURE RETICULOCYTE FRACTION 29.8 % 2.3-15.9 H (test code = IRF) CBC W/AUTO [id number] 08:04:00 Test Item Value Reference Range Interpretation Comments WHITE BLOOD CELL (test 3.4 K/mm3 4.1-12.1 L code = WBC) RED BLOOD CELL (test code 3.10 M/mm3 3.8-5.5 L = RBC) HEMOGLOBIN (test code = 7.9 G/DL 10.6-15.8 L HGB) HEMATOCRIT (test code = 27.5 % 31.8-47.4 L HCT) MEAN CELL VOLUME (test 88.7 fL 80.1-101.1 N code = MCV) MEAN CELL HGB (test code = 25.5 pg 25.3-35.3 N MCH) MEAN CELL HGB CONCETRATION 28.7 G/DL 32.7-35.1 L (test code = MCHC) RED CELL DISTRIBUTION 23.6 % 12.2-16.4 H WIDTH (test code = RDW) RED CELL DISTRIBUTION 75.7 fL 36.4-46.3 H WIDTH (test code = RDW-SD) PLATELET COUNT (test code 127 K/mm3 155-337 L = PLT) MEAN PLATELET VOLUME (test 11.1 fL 6.8-11.2 N code = MPV) GRANULOCYTE % (test code = 50.4 % 37.8-82.6 N GR%) IMMATURE GRANULOCYTE % 0.9 % 0.0-2.0 N (test code = IG%) LYMPHOCYTE % (test code = 34.1 % 14.1-45.4 N LY%) MONOCYTE % (test code = 12.8 % 2.5-11.7 H MO%) EOSINOPHIL % (test code = 1.5 % 0.0-6.2 N EO%) BASOPHIL % (test code = 0.3 % 0.0-2.1 N BA%) NUCLEATED RBC % (test code 0.0 /100WBC% 0.0-1.0 N = NRBC%) GRANULOCYTE # (test code = 1.70 k/mm3 2.0-13.7 L GR#) IMMATURE GRANULOCYTE # 0.03 K/mm3 0.00-0.03 N (test code = IG#) LYMPHOCYTE # (test code = 1.15 K/mm3 0.6-3.8 N LY#) MONOCYTE # (test code = 0.43 K/mm3 0.11-0.59 N MO#) EOSINOPHIL # (test code = 0.05 K/mm3 0.0-0.4 N EO#) BASOPHIL # (test code = 0.01 K/mm3 0.0-0.1 N BA#) NUCLEATED RBC # (test code 0.00 K/mm3 0.0-0.05 N = NRBC#) MANUAL DIFF REQUIRED (test RBC (SCAN) DIFF/SCN CRITERIA code = MDIFF) DIFFERENTIAL [id number] 08:04:00 Test Item Value Reference Range Interpretation Comments DIFFERENTIAL COMMENT AUTO DIFF CONFIRMED SCAN COMM (test code = DC) COMMENT HYPOCHROMIA (test code = SLIGHT ON SCAN NONE HYPO) ANISOCYTOSIS (test code SLIGHT ON SCAN NONE = ANISO) STOMATOCYTES (test code FEW ON SCAN NONE = STO) PLATELET ESTIMATE (test SL DECR ON SCAN ADEQUATE code = PLTEST) COMPREHENSIVE METABOLIC [id number] 07:14:00 Test Item Value Reference Range Interpretation Comments SODIUM (test code = 141.0 mmol/L 133-144 N NA) POTASSIUM (test code 3.3 mmol/L 3.5-5.1 L = K) CHLORIDE (test code 108 mmol/L 95-105 H = CL) CARBON DIOXIDE (test 28 mmol/L 21-32 N code = CO2) ANION GAP (test code 5.0 GAP calc 4.0-15.0 N = GAP) GLUCOSE (test code = 87 MG/DL 70-110 N GLU) BLOOD UREA NITROGEN 3 MG/DL 7-18 L (test code = BUN) GLOMERULAR 139 estGFR >60 The estimated FILTRATION RATE glomerular (test code = GFR) filtration rate is computed usingpatient ra ce, age, sex, and s brandyn creatinine. If any of theneeded da ta elements are mi ssing the Laboratory can notcompute an estimation of t he glomerular filtration rate .The GFR value units = ml/min/1.73 met er squared. EstimatedGFR va lues above 60 should be interpreted as >60, not anexact number.--- DRUG DOSAGE ALERT -- - Drug dosage adjustments uti lize different calculationpara meter s. CREATININE (test 0.54 MG/DL 0.55-1.30 L Results may be code = CREAT) depressed if p atient is takingN-Acetylc ystei ne (NAC) and Metamizole (Dipyrone). TOTAL PROTEIN (test 6.2 G/DL 6.4-8.2 L code = PROT) ALBUMIN (test code = 2.8 G/DL 3.4-5.0 L ALB) ALBUMIN/GLOBULIN 0.8 RATIO 1.2-2.2 L RATIO (test code = A/G) CALCIUM (test code = 7.8 MG/DL 8.5-10.1 L CA) BILIRUBIN TOTAL 3.62 MG/DL 0.00-1.00 H (test code = BILT) BILIRUBIN DIRECT 2.29 MG/DL 0.00-0.30 H (test code = BILD) BILIRUBIN INDIRECT 1.33 MG/DL 0.2-1.3 H (test code = BILIND) SGOT/AST (test code 295 Unit/L 15-37 H = AST) SGPT/ALT (test code 129 Unit/L 12-78 H = ALT) ALKALINE PHOSPHATASE 216 Unit/L 45-117 H TOTAL (test code = ALKP) INDEX HEMOLYSIS 1 NORMAL <10 1 NORMAL (test code = MG Index/DL HEMINDEX) INDEX ICTERIC (test 2 TRACE 2-5 1 NORMAL code = ICTINDEX) MG Index/DL INDEX LIPEMIA (test 1 NORMAL <50 1 NORMAL code = LIPINDEX) MG Index/DL [id number] 07:14:00 Test Item Value Reference Range Interpretation Comments MAGNESIUM (test code = MAG) 2.8 MG/DL 1.6-2.6 H CBC W/AUTO [id number] 06:50:00 Test Item Value Reference Range Interpretation Comments WHITE BLOOD CELL (test 3.4 K/mm3 4.1-12.1 L code = WBC) RED BLOOD CELL (test code 3.10 M/mm3 3.8-5.5 L = RBC) HEMOGLOBIN (test code = 7.9 G/DL 10.6-15.8 L HGB) HEMATOCRIT (test code = 27.5 % 31.8-47.4 L HCT) MEAN CELL VOLUME (test 88.7 fL 80.1-101.1 N code = MCV) MEAN CELL HGB (test code = 25.5 pg 25.3-35.3 N MCH) MEAN CELL HGB CONCETRATION 28.7 G/DL 32.7-35.1 L (test code = MCHC) RED CELL DISTRIBUTION 23.6 % 12.2-16.4 H WIDTH (test code = RDW) RED CELL DISTRIBUTION 75.7 fL 36.4-46.3 H WIDTH (test code = RDW-SD) PLATELET COUNT (test code 127 K/mm3 155-337 L = PLT) MEAN PLATELET VOLUME (test 11.1 fL 6.8-11.2 N code = MPV) GRANULOCYTE % (test code = 50.4 % 37.8-82.6 N GR%) IMMATURE GRANULOCYTE % 0.9 % 0.0-2.0 N (test code = IG%) LYMPHOCYTE % (test code = 34.1 % 14.1-45.4 N LY%) MONOCYTE % (test code = 12.8 % 2.5-11.7 H MO%) EOSINOPHIL % (test code = 1.5 % 0.0-6.2 N EO%) BASOPHIL % (test code = 0.3 % 0.0-2.1 N BA%) NUCLEATED RBC % (test code 0.0 /100WBC% 0.0-1.0 N = NRBC%) GRANULOCYTE # (test code = 1.70 k/mm3 2.0-13.7 L GR#) IMMATURE GRANULOCYTE # 0.03 K/mm3 0.00-0.03 N (test code = IG#) LYMPHOCYTE # (test code = 1.15 K/mm3 0.6-3.8 N LY#) MONOCYTE # (test code = 0.43 K/mm3 0.11-0.59 N MO#) EOSINOPHIL # (test code = 0.05 K/mm3 0.0-0.4 N EO#) BASOPHIL # (test code = 0.01 K/mm3 0.0-0.1 N BA#) NUCLEATED RBC # (test code 0.00 K/mm3 0.0-0.05 N = NRBC#) MANUAL DIFF REQUIRED (test RBC (SCAN) DIFF/SCN CRITERIA code = MDIFF) DIFFERENTIAL [id number] 06:50:00 Test Item Value Reference Range Interpretation Comments MORPHOLOGY COMMENT (test code = MOC) ON SCAN NORMAL RBCS PLATELET ESTIMATE (test code = ON SCAN ADEQUATE PLTEST) CBC W/AUTO [id number] 06:50:00 Test Item Value Reference Range Interpretation Comments WHITE BLOOD CELL (test 3.4 K/mm3 4.1-12.1 L code = WBC) RED BLOOD CELL (test code 3.10 M/mm3 3.8-5.5 L = RBC) HEMOGLOBIN (test code = 7.9 G/DL 10.6-15.8 L HGB) HEMATOCRIT (test code = 27.5 % 31.8-47.4 L HCT) MEAN CELL VOLUME (test 88.7 fL 80.1-101.1 N code = MCV) MEAN CELL HGB (test code = 25.5 pg 25.3-35.3 N MCH) MEAN CELL HGB CONCETRATION 28.7 G/DL 32.7-35.1 L (test code = MCHC) RED CELL DISTRIBUTION 23.6 % 12.2-16.4 H WIDTH (test code = RDW) RED CELL DISTRIBUTION 75.7 fL 36.4-46.3 H WIDTH (test code = RDW-SD) PLATELET COUNT (test code 127 K/mm3 155-337 L = PLT) MEAN PLATELET VOLUME (test 11.1 fL 6.8-11.2 N code = MPV) GRANULOCYTE % (test code = 50.4 % 37.8-82.6 N GR%) IMMATURE GRANULOCYTE % 0.9 % 0.0-2.0 N (test code = IG%) LYMPHOCYTE % (test code = 34.1 % 14.1-45.4 N LY%) MONOCYTE % (test code = 12.8 % 2.5-11.7 H MO%) EOSINOPHIL % (test code = 1.5 % 0.0-6.2 N EO%) BASOPHIL % (test code = 0.3 % 0.0-2.1 N BA%) NUCLEATED RBC % (test code 0.0 /100WBC% 0.0-1.0 N = NRBC%) GRANULOCYTE # (test code = 1.70 k/mm3 2.0-13.7 L GR#) IMMATURE GRANULOCYTE # 0.03 K/mm3 0.00-0.03 N (test code = IG#) LYMPHOCYTE # (test code = 1.15 K/mm3 0.6-3.8 N LY#) MONOCYTE # (test code = 0.43 K/mm3 0.11-0.59 N MO#) EOSINOPHIL # (test code = 0.05 K/mm3 0.0-0.4 N EO#) BASOPHIL # (test code = 0.01 K/mm3 0.0-0.1 N BA#) NUCLEATED RBC # (test code 0.00 K/mm3 0.0-0.05 N = NRBC#) MANUAL DIFF REQUIRED (test RBC (SCAN) DIFF/SCN CRITERIA code = MDIFF) DIFFERENTIAL [id number] 06:50:00 Test Item Value Reference Range Interpretation Comments MORPHOLOGY COMMENT (test code = MOC) ON SCAN NORMAL RBCS PLATELET ESTIMATE (test code = ON SCAN ADEQUATE PLTEST) BASIC METABOLIC [id number] 00:51:00 Test Item Value Reference Range Interpretation Comments SODIUM (test code = 137.0 mmol/L 133-144 N NA) POTASSIUM (test code 3.3 mmol/L 3.5-5.1 L = K) CHLORIDE (test code 105 mmol/L 95-105 N = CL) CARBON DIOXIDE (test 26 mmol/L 21-32 N code = CO2) ANION GAP (test code 6.0 GAP calc 4.0-15.0 N = GAP) GLUCOSE (test code = 100 MG/DL 70-110 N GLU) BLOOD UREA NITROGEN 5 MG/DL 7-18 L (test code = BUN) CREATININE (test 0.57 MG/DL 0.55-1.30 N Results may be code = CREAT) depressed if patient is takingN-Acetylc yste ine (NAC) and Metamizole (Dipyrone). CALCIUM (test code = 7.9 MG/DL 8.5-10.1 L CA) INDEX HEMOLYSIS 2 TRACE 10-25 1 NORMAL (test code = MG Index/DL HEMINDEX) INDEX ICTERIC (test 2 TRACE 2-5 MG 1 NORMAL code = ICTINDEX) Index/DL INDEX LIPEMIA (test 1 NORMAL <50 MG 1 NORMAL code = LIPINDEX) Index/DL BASIC METABOLIC [id number] 00:50:00 Test Item Value Reference Range Interpretation Comments SODIUM (test code = NA) 137.0 mmol/L 133-144 N POTASSIUM (test code = K) 3.3 mmol/L 3.5-5.1 L CHLORIDE (test code = CL) 105 mmol/L 95-105 N CARBON DIOXIDE (test code 26 mmol/L 21-32 N = CO2) ANION GAP (test code = 6.0 GAP calc 4.0-15.0 N GAP) GLUCOSE (test code = GLU) 100 MG/DL 70-110 N BLOOD UREA NITROGEN (test 5 MG/DL 7-18 L code = BUN) CREATININE (test code = MG/DL 0.55-1.30 CREAT) CALCIUM (test code = CA) 7.9 MG/DL 8.5-10.1 L INDEX HEMOLYSIS (test 2 TRACE 10-25 MG 1 NORMAL code = HEMINDEX) Index/DL INDEX ICTERIC (test code 2 TRACE 2-5 MG 1 NORMAL = ICTINDEX) Index/DL INDEX LIPEMIA (test code 1 NORMAL <50 MG 1 NORMAL = LIPINDEX) Index/DL VITAMIN [id number] 20:25:00 Test Item Value Reference Range Interpretation Comments VITAMIN B12 (test code = VITB12) 811 PG/ML 183-986 N FOLIC [id number] 19:33:00 Test Item Value Reference Range Interpretation Comments FOLIC ACID (test code = FOL) 3.21 NG/ML 3.10-17.50 N SERUM [id number] 19:32:00 Test Item Value Reference Range Interpretation Comments SERUM IRON (test code = IRON) 148 mcG/DL 50-170 N TOTAL IRON BINDING [id number] 19:32:00 Test Item Value Reference Range Interpretation Comments TOTAL IRON BINDING CAPACITY (test 357 mcG/DL 250-450 N code = TIBC) [id number] 19:32:00 Test Item Value Reference Range Interpretation Comments FERRITIN (test code = 50.2 NG/ML 3.0-105.0 N PREMEN OPAUSAL.....7-2 VERO) 83 NG/MLPOSTMENOPA USAL.. .14-233 NG/ML SERUM [id number] 19:29:00 Test Item Value Reference Range Interpretation Comments SERUM IRON (test code = IRON) 148 mcG/DL 50-170 N TOTAL IRON BINDING [id number] 19:29:00 Test Item Value Reference Range Interpretation Comments TOTAL IRON BINDING CAPACITY (test 357 mcG/DL 250-450 N code = TIBC) [id number] 19:29:00 Test Item Value Reference Range Interpretation Comments FERRITIN (test code = VERO) NG/ML 3.0-105.0 PT AND [id number] 19:18:00 Test Item Value Reference Interpretation Comments Range PT PATIENT (test 12.7 SECONDS 9.4-12.5 H code = PTP) INTERNATIONAL 1.10 INR 0.88-1.13 N NORMAL RATIO (test Unit --------- code = INR) ---------Therap eutic range for INR i s dependent upon the situation.2.0-3 .0 Prophylaxis / v enous thromboembolism , Treatment of DVT, Acute myocardia l infarction stro ke prevention, Systemic emboli sm prevention in fibrillation3.0 -4.5 AMI recurrence prev ention, Systemic emboli sm prevention in p rosthetic heart 3.0-5.4 A AL mortality reduc tion THROMBOPLASTIN TIME 29.8 SECONDS 24-37.7 N THERAPEU TIC RANGE FOR PARTIAL (test code UNFRACTIO NATED HEPARIN = = PTT) 50.5-83.6 SEC T his test is not recommen ded to monitor low molecularweight heparin or danaparoid. Order LMWH test COLLECTION THROUGH LINES THAT HAVE BEEN PREVIOUSLY FLUS HEDWITH HEPARIN SHOULD BE AVOIDED DUE TO POSSIBLE HEPARINCONTAMIN ATION UA RFLX MICR CULT IF [id number] 16:52:00 Test Item Value Reference Range Interpretation Comments UA COLOR (test code = YELLOW DESCRIPT YELLOW COLU) UA APPEARANCE (test code CLEAR DESCRIPT CLEAR = APPU) UA GLUCOSE DIPSTICK (test NORMAL (0) mg/dL 0 (NORMAL) code = DGLUU) UA BILIRUBIN DIPSTICK 0.5 (1+) mg/dL (NEG) 0 A (test code = BILU) UA KETONE DIPSTICK (test NEGATIVE (0) mg/dL (NEG) 0 code = KETU) UA SPECIFIC GRAVITY (test 1.015 SG 1.001-1.035 code = SGU) UA BLOOD DIPSTICK (test NEGATIVE (0.00) 0 (NEG) code = SANTANA) mg/dL UA PH DIPSTICK (test code 7.0 pH UNITS 4.6-8.0 = KISHORE) UA PROTEIN DIPSTICK (test 10 (TRACE) mg/dL <30 (1+) A code = PROU) UA UROBILINIOGEN DIPSTICK 2 (1+) mg/Dl <2.0 (1+) A (test code = URO) UA NITRITE DIPSTICK (test NEGATIVE (0) SCREEN NEG code = SAMMY) UA LEUKOCYTE ESTERASE NEGATIVE (0) (NEG) 0 DIPSTICK (test code = Leuk/mcL LEUU) UA COMMENT (test code = CLEAN CATCH SPEC SpecComment COMU) NoteSPEC UA WBC (test code = WBCU) 0-3 #WBC/HPF 0-3 UA RBC (test code = RBCU) 0-3 #RBC/HPF 0-3 UA SQUAMOUS CELLS (test FEW >2 /UL NONE-SQepi code = SQU) UA MUCUS (test code = MOD /LPF NONE A MUCU) UA CULTURE NEEDED? (test Crit NOTmet CULT-N/A Cult byWBC code = UACULT) Criteria Indication for culture: Flank PainUR HCG [id number] 16:52:00 Test Item Value Reference Range Interpretation Comments UR HCG QUAL (test code = HCGQLU) NEG Indication for culture: Flank PainUA RFLX MICR CULT IF [id number] 16:52:00 Test Item Value Reference Range Interpretation Comments UA COLOR (test code = YELLOW DESCRIPT YELLOW COLU) UA APPEARANCE (test code CLEAR DESCRIPT CLEAR = APPU) UA GLUCOSE DIPSTICK (test NORMAL (0) mg/dL 0 (NORMAL) code = DGLUU) UA BILIRUBIN DIPSTICK 0.5 (1+) mg/dL (NEG) 0 A (test code = BILU) UA KETONE DIPSTICK (test NEGATIVE (0) mg/dL (NEG) 0 code = KETU) UA SPECIFIC GRAVITY (test 1.015 SG 1.001-1.035 code = SGU) UA BLOOD DIPSTICK (test NEGATIVE (0.00) 0 (NEG) code = SANTANA) mg/dL UA PH DIPSTICK (test code 7.0 pH UNITS 4.6-8.0 = KISHORE) UA PROTEIN DIPSTICK (test 10 (TRACE) mg/dL <30 (1+) A code = PROU) UA UROBILINIOGEN DIPSTICK 2 (1+) mg/Dl <2.0 (1+) A (test code = URO) UA NITRITE DIPSTICK (test NEGATIVE (0) SCREEN NEG code = SAMMY) UA LEUKOCYTE ESTERASE NEGATIVE (0) (NEG) 0 DIPSTICK (test code = Leuk/mcL LEUU) UA COMMENT (test code = CLEAN CATCH SPEC SpecComment COMU) NoteSPEC UA WBC (test code = WBCU) 0-3 #WBC/HPF 0-3 UA RBC (test code = RBCU) 0-3 #RBC/HPF 0-3 UA SQUAMOUS CELLS (test FEW >2 /UL NONE-SQepi code = SQU) UA MUCUS (test code = MOD /LPF NONE A MUCU) UA CULTURE NEEDED? (test Crit NOTmet CULT-N/A Cult byWBC code = UACULT) Criteria Indication for culture: Flank PainUR HCG [id number] 16:52:00 Test Item Value Reference Range Interpretation Comments UR HCG QUAL (test NEGATIVE NEG Very dilut e urines with a code = HCGQLU) low specific gravity may notcontain repr esentative levels of hCG. Indication for culture: Flank [id number] 16:38:00 Test Item Value Reference Range Interpretation Comments MAGNESIUM (test code = MAG) 1.3 MG/DL 1.6-2.6 L - US ABDOMEN [id number] 15:51:00 [facility] : 1995 Sex: F Patient Name: BRENDEN JOEL Unit No: [id number] EXAMS: CPT CODE: [id number] US ABDOMEN LTD 20522 EXAMINATION: - US ABDOMEN LTD COMPARISON: Ultrasound dated May 10, 2020 HISTORY: Abdominal pain LOCATION CODE: C3 TECHNIQUE: Multiplanar grayscale and Doppler ultrasound images of the right upper quadrant of the abdomen are submitted for review. FINDINGS: PANCREAS: The head and body the pancreas are visualized and are normal. The tail is obscured by bowel gas. LIVER: The liver is elongated measuring 18.3 cm in the right midclavicular line. It was measured as 13 cm on the prior study and differences are likely secondary to variations in measurement technique. Echotexture remains somewhat increased which may reflect underlying fatty change. GALLBLADDER AND BILIARY TREE: The gallbladder contains a tiny nonmobile echogenic focus which may reflect the presence of a small polyp or hearing gallstone. It is not well seen on the prior study. There is no gallbladder wall thickening or pericholecystic fluid RIGHT KIDNEY: The right kidney measures 10.3 x 3.5 x 5.4 cm and is normal inappearance FREE FLUID: None VESSELS: The visualized portions of abdominal aorta inferior vena cava are normal. The portal vein is patent, appropriate directional flow. IMPRESSION: Elongated, somewhat fatty appearing liver. Differences may be related to differences in measurement technique between the 2 examinations. Small adherent stone versus polyp in the gallbladder lumen. at 1551 Reported and signed by: Marilia King MD CC: Sisi Corbin NP Technologist: Maria Alejandra Dominguez Trnscrbd D/ (1551) [email or web address] Probe: Orig Print D/T: S: 06/22/2020 (1554) Probe: LAZARO Calero NAME: JOELBRENDEN [address] PHYS: Sisi Mcgowan NP [place], [place] [address] : 1995 AGE: 25 SEX: F LOC: B.ERS PHONE #: [phone] EXAM DATE: 06/22/2020 STATUS: REG ER FAX #: [phone] RAD NO: Page 1 Signed ReportBASIC METABOLIC [id number] 15:39:00 Test Item Value Reference Range Interpretation Comments SODIUM (test code = 137.0 mmol/L 133-144 N NA) POTASSIUM (test code 2.8 mmol/L 3.5-5.1 L = K) CHLORIDE (test code 102 mmol/L 95-105 N = CL) CARBON DIOXIDE (test 25 mmol/L 21-32 N code = CO2) ANION GAP (test code 10.0 GAP calc 4.0-15.0 N = GAP) GLUCOSE (test code = 106 MG/DL 70-110 N GLU) BLOOD UREA NITROGEN 5 MG/DL 7-18 L (test code = BUN) CREATININE (test 0.73 MG/DL 0.55-1.30 N Results may be code = CREAT) depressed if patient is takingN-Acetylc yste ine (NAC) and Metamizole (Dipyrone). CALCIUM (test code = 8.3 MG/DL 8.5-10.1 L CA) INDEX HEMOLYSIS 1 NORMAL <10 MG 1 NORMAL (test code = Index/DL HEMINDEX) INDEX ICTERIC (test 2 TRACE 2-5 MG 1 NORMAL code = ICTINDEX) Index/DL INDEX LIPEMIA (test 1 NORMAL <50 MG 1 NORMAL code = LIPINDEX) Index/DL HEPATIC FUNCTION [id number] 15:39:00 Test Item Value Reference Range Interpretation Comments TOTAL PROTEIN (test code = PROT) 7.7 G/DL 6.4-8.2 N ALBUMIN (test code = ALB) 3.4 G/DL 3.4-5.0 N BILIRUBIN TOTAL (test code = BILT) 3.61 MG/DL 0.00-1.00 H BILIRUBIN DIRECT (test code = 2.18 MG/DL 0.00-0.30 H BILD) BILIRUBIN INDIRECT (test code = 1.43 MG/DL 0.2-1.3 H BILIND) SGOT/AST (test code = AST) 441 Unit/L 15-37 H SGPT/ALT (test code = ALT) 178 Unit/L 12-78 H ALKALINE PHOSPHATASE TOTAL (test 276 Unit/L 45-117 H code = ALKP) [id number] 15:39:00 Test Item Value Reference Range Interpretation Comments LIPASE (test code = LIP) 28 Unit/L 114-286 L BASIC METABOLIC [id number] 15:33:00 Test Item Value Reference Range Interpretation Comments SODIUM (test code = NA) 137.0 mmol/L 133-144 N POTASSIUM (test code = K) 2.8 mmol/L 3.5-5.1 L CHLORIDE (test code = CL) 102 mmol/L 95-105 N CARBON DIOXIDE (test code 25 mmol/L 21-32 N = CO2) ANION GAP (test code = 10.0 GAP calc 4.0-15.0 N GAP) GLUCOSE (test code = GLU) 106 MG/DL 70-110 N BLOOD UREA NITROGEN (test 5 MG/DL 7-18 L code = BUN) CREATININE (test code = MG/DL 0.55-1.30 CREAT) CALCIUM (test code = CA) 8.3 MG/DL 8.5-10.1 L INDEX HEMOLYSIS (test 1 NORMAL <10 MG 1 NORMAL code = HEMINDEX) Index/DL INDEX ICTERIC (test code 2 TRACE 2-5 MG 1 NORMAL = ICTINDEX) Index/DL INDEX LIPEMIA (test code 1 NORMAL <50 MG 1 NORMAL = LIPINDEX) Index/DL HEPATIC FUNCTION [id number] 15:33:00 Test Item Value Reference Range Interpretation Comments TOTAL PROTEIN (test code = PROT) G/DL 6.4-8.2 ALBUMIN (test code = ALB) 3.4 G/DL 3.4-5.0 N BILIRUBIN TOTAL (test code = BILT) MG/DL 0.00-1.00 BILIRUBIN DIRECT (test code = BILD) MG/DL 0.00-0.30 BILIRUBIN INDIRECT (test code = MG/DL 0.2-1.3 BILIND) SGOT/AST (test code = AST) Unit/L 15-37 SGPT/ALT (test code = ALT) Unit/L 12-78 ALKALINE PHOSPHATASE TOTAL (test Unit/L 45-117 code = ALKP) [id number] 15:33:00 Test Item Value Reference Range Interpretation Comments LIPASE (test code = LIP) 28 Unit/L 114-286 L CBC W/O [id number] 15:19:00 Test Item Value Reference Range Interpretation Comments WHITE BLOOD CELL (test code = WBC) 4.9 K/mm3 4.1-12.1 N RED BLOOD CELL (test code = RBC) 3.78 M/mm3 3.8-5.5 L HEMOGLOBIN (test code = HGB) 9.9 G/DL 10.6-15.8 L HEMATOCRIT (test code = HCT) 33.1 % 31.8-47.4 N MEAN CELL VOLUME (test code = MCV) 87.6 fL 80.1-101.1 N MEAN CELL HGB (test code = MCH) 26.2 pg 25.3-35.3 N MEAN CELL HGB CONCETRATION (test 29.9 G/DL 32.7-35.1 L code = MCHC) RED CELL DISTRIBUTION WIDTH (test 23.5 % 12.2-16.4 H code = RDW) PLATELET COUNT (test code = PLT) 177 K/mm3 155-337 N MEAN PLATELET VOLUME (test code = 10.7 fL 6.8-11.2 N MPV) SED [id number] 08:32:00 Test Item Value Reference Range Interpretation Comments SED RATE (test code = SEDW) 41 mm/hr 0-20 H CREATINE KINASE (CK)2020-05-12 13:07:00 Test Item Value Reference Range Interpretation Comments CREATINE KINASE (CK) (test code = 33 Unit/L 26-192 N CK) - MRI L-SPINE W [id number] 12:59:00 FAX: Jhon Das MD [phone] [place]: [facility]: ADM FAX: Gene Ritchie MD [phone] FAX: Nuno Marshall MD Patient Name: BRENDEN JOEL Unit No: [id number] EXAMS: CPT CODE: [id number] MRI L- SPINE W CON 34887 MRI Lumbar Spine with and without contrast HISTORY: Back pain COMPARISON: None available TECHNIQUE: Sagittal T1, T2 and STIR, axial T1, T2 and coronal fat suppressed T2 weighted images of the lumbar spine were obtained with and without contrast. FINDINGS: There is a normal lumbar lordosis with preservation of vertebral body alignment and vertebral body height. The conus medullaris ends at the L1 level and demonstrates normal caliber and signal intensity. Disc desiccation is noted at L4-L5 and L5-S1 no abnormal enhancement. Soft t issues are within normal limits. Axial images: L1- L2: The disk is normal in configuration. There is no facet arthropathy, neural foraminal narrowing, or central canal stenosis. L2-L3: The disk is normal in configuration. There is no facet arthropathy, neural foraminal narrowing, or central canal stenosis. L3-L4: The disk is normal in configuration. There is no facet arthropathy, neural foraminal narrowing, or central canal stenosis. L4-L5: Mild 3 mm left subarticular focal disc protrusion with an annular fissure. No canal stenosis. Mild left lateral recess narrowing. No neuroforaminal cliff nosis. L5-S1: Mild 2 mm focal central disc protrusion with an annular fissure. There is no facet arthropathy, neural foraminal narrowing, or central canal stenosis. IMPRESSION: At L4-L5, mild left subarticular focal disc protrusion with mild left lateral recess narrowing. at 1259 Reported and signed by: Merritt Mejía M.D. [facility] Ron NAME: BRENDEN JOEL [facility] PHYS: Nuno Vieyra MD [address] [place] [address] BLVD : 1995 AGE: 25 SEX: GINA, [place] [id number] LOC: B.101 W PHONE #: [phone] EXAM DATE: 05/12/2020 STATUS: ADM IN FAX #: [phone] RAD NO: DC Dt: PAGE 1 Signed Report (CONTINUED) FAX: Jhon Das MD [phone] [place]: St: ADM FAX: Gene Ritchie [phone] FAX: Nuno Marshall MD Patient Name: BRENDEN JOEL Unit No: [id number] EXAMS: CPT CODE: [id number] MRI L-SPINE W [facility] [address] <Continued> CC: Jhon Lopez MD; Nuno Valenzuela MD Dictated Date/Time: 05/12/2020 (7637)Technologist: Cheryl Caraballo Transcribed Date/Time: 05/12/2020 (3108) By: [email or web address] Orig Print D/T: S: 05/12/2020 (9922) LAZARO Calero NAME: JOELBRENDEN [facility] PHYS: Nuno Vieyra MD [address] [place] [address] BLVD : 1995 AGE: 25 SEX: Jarred CALERO, [place] [address] LOC: B.101 W PHONE #: [phone] EXAM DATE: 05/12/2020 STATUS: ADM IN FAX #: [phone] RAD NO: DC Dt: PAGE 2 Signed Report- MRI T-SPINE W W/O [id number] 12:54:00 FAX: Jhon Das MD [phone] [place]: St: ADM FAX: Gene Ritchie MD [phone] FAX: Nuno Marshall MD Patient Name: BRENDEN JOEL JAYSON Unit No: [id number] EXAMS: CPT CODE: [id number] MRI T-SPINE W W/O CONT [id number] EXAM: - MRI T-SPINE W W/O CONT HISTORY: Paraparesis TECHNIQUE: Multiplanar multisequence MR images of the thoracic spine were obtained with and without intravenous contrast. COMPARISON: None FINDINGS: No abnormal enhancement. Vertebral heights and alignment are maintained. Marrow signal intensity is within normal limits. The thoracic spinal cord is normal in signal intensity and caliber. There is no significant spinal canal or neural foraminal stenosis at any level. IMPRESSION: No significant thoracic spine abnormalities. at 1254 Reported and signed by: Merritt Mejía M.D. CC: Jhon Terrell; Nuno Valenzuela MD Dictated Date/Time: 05/12/2020 (1254)Technologist: Bunny Serna; Cheryl Caraballo Transcribed Date/Time: 05/12/2020 (1254) By: [email or web address] Orig Print D/T: S: 05/12/2020 (1727) LAZARO Calero NAME: JOELBRENDENDAMON [facility] PHYS: Nuno Vieyra MD [address] [place] [address] BLVD : 1995 AGE: 25 SEX: [place] [id number] LOC: B.101 W PHONE #: [phone] EXAM DATE: 05/12/2020 STATUS: ADM IN FAX #: [phone] RAD NO: DC Dt: PAGE 1 Signed ReportRPR TITER 2020-05-12 09:13:00 Test Item Value Reference Range Interpretation Comments RPR TITER (test Non Reactive NonRea<1:1 Performed At : HD code = RPRT) [facility] [address] [id number] cam Selby MD Ph:[phone] AB HIV 1 09:13:00 Test Item Value Reference Range Interpretation Comments AB HIV 1 2 NonReactive SREEN NR This i s a screening (test code = test only A [id number]) Non-Reactive te st result does not exclude the possibility of exposure to or infection with HIV. HIV antibodies and/orantigen m ay be undetectable in some stages of infection.Curre ntly available assay s for the detection o f p24 antigenand/or antibodies to H IV-1 and/or HIV-2 ma y not detect allinfec justice individuals. HIV-1/HIV-2 differentiation testing will be reflexedautomat ically per pathologist approved reflex protocols onall Reactive test r esults. COMPREHENSIVE METABOLIC [id number] 08:25:00 Test Item Value Reference Range Interpretation Comments SODIUM (test code = 138.0 mmol/L 133-144 N NA) POTASSIUM (test code 3.5 mmol/L 3.5-5.1 N = K) CHLORIDE (test code 107 mmol/L 95-105 H = CL) CARBON DIOXIDE (test 25 mmol/L 21-32 N code = CO2) ANION GAP (test code 6.0 GAP calc 4.0-15.0 N = GAP) GLUCOSE (test code = 83 MG/DL 70-110 N GLU) BLOOD UREA NITROGEN 2 MG/DL 7-18 L (test code = BUN) GLOMERULAR 121 estGFR >60 The estimated FILTRATION RATE glomerular (test code = GFR) filtration rate is computed usingpatient ra ce, age, sex, and s brandyn creatinine. If any of theneeded da ta elements are mi ssing the Laboratory can notcompute an estimation of t he glomerular filtration rate .The GFR value units = ml/min/1.73 met er squared. EstimatedGFR va lues above 60 should be interpreted as >60, not anexact number.--- DRUG DOSAGE ALERT -- - Drug dosage adjustments uti lize different calculationpara meter s. CREATININE (test 0.61 MG/DL 0.55-1.30 N Results may be code = CREAT) depressed if p atient is takingN-Acetylc ystei ne (NAC) and Metamizole (Dipyrone). TOTAL PROTEIN (test 6.9 G/DL 6.4-8.2 N code = PROT) ALBUMIN (test code = 2.6 G/DL 3.4-5.0 L ALB) ALBUMIN/GLOBULIN 0.6 RATIO 1.2-2.2 L RATIO (test code = A/G) CALCIUM (test code = 8.8 MG/DL 8.5-10.1 N CA) BILIRUBIN TOTAL 0.73 MG/DL 0.00-1.00 N (test code = BILT) BILIRUBIN DIRECT 0.49 MG/DL 0.00-0.30 H (test code = BILD) BILIRUBIN INDIRECT 0.24 MG/DL 0.2-1.3 N (test code = BILIND) SGOT/AST (test code 78 Unit/L 15-37 H = AST) SGPT/ALT (test code 61 Unit/L 12-78 N = ALT) ALKALINE PHOSPHATASE 171 Unit/L 45-117 H TOTAL (test code = ALKP) INDEX HEMOLYSIS 1 NORMAL <10 1 NORMAL (test code = MG Index/DL HEMINDEX) INDEX ICTERIC (test 1 NORMAL <2 MG 1 NORMAL code = ICTINDEX) Index/DL INDEX LIPEMIA (test 1 NORMAL <50 1 NORMAL code = LIPINDEX) MG Index/DL [id number] 08:25:00 Test Item Value Reference Range Interpretation Comments MAGNESIUM (test code = MAG) 2.0 MG/DL 1.6-2.6 N COMPREHENSIVE METABOLIC [id number] 08:13:00 Test Item Value Reference Range Interpretation Comments SODIUM (test code = NA) 138.0 mmol/L 133-144 N POTASSIUM (test code = K) 3.5 mmol/L 3.5-5.1 N CHLORIDE (test code = CL) 107 mmol/L 95-105 H CARBON DIOXIDE (test code mmol/L 21-32 = CO2) ANION GAP (test code = GAP calc 4.0-15.0 GAP) GLUCOSE (test code = GLU) MG/DL 70-110 BLOOD UREA NITROGEN (test MG/DL 7-18 code = BUN) CREATININE (test code = MG/DL 0.55-1.30 CREAT) TOTAL PROTEIN (test code G/DL 6.4-8.2 = PROT) ALBUMIN (test code = ALB) G/DL 3.4-5.0 ALBUMIN/GLOBULIN RATIO RATIO 1.2-2.2 (test code = A/G) CALCIUM (test code = CA) MG/DL 8.5-10.1 BILIRUBIN TOTAL (test MG/DL 0.00-1.00 code = BILT) BILIRUBIN DIRECT (test MG/DL 0.00-0.30 code = BILD) BILIRUBIN INDIRECT (test MG/DL 0.2-1.3 code = BILIND) SGOT/AST (test code = Unit/L 15-37 AST) SGPT/ALT (test code = Unit/L 12-78 ALT) ALKALINE PHOSPHATASE Unit/L 45-117 TOTAL (test code = ALKP) INDEX HEMOLYSIS (test 1 NORMAL <10 MG 1 NORMAL code = HEMINDEX) Index/DL INDEX ICTERIC (test code 1 NORMAL <2 MG 1 NORMAL = ICTINDEX) Index/DL INDEX LIPEMIA (test code 1 NORMAL <50 MG 1 NORMAL = LIPINDEX) Index/DL [id number] 08:13:00 Test Item Value Reference Range Interpretation Comments MAGNESIUM (test code = MAG) MG/DL 1.6-2.6 CBC W/AUTO [id number] 08:02:00 Test Item Value Reference Range Interpretation Comments WHITE BLOOD CELL (test code = 5.5 K/mm3 4.1-12.1 N WBC) RED BLOOD CELL (test code = RBC) 3.65 M/mm3 3.8-5.5 L HEMOGLOBIN (test code = HGB) 9.8 G/DL 10.6-15.8 L HEMATOCRIT (test code = HCT) 34.5 % 31.8-47.4 N MEAN CELL VOLUME (test code = 94.5 fL 80.1-101.1 N MCV) MEAN CELL HGB (test code = MCH) 26.8 pg 25.3-35.3 N MEAN CELL HGB CONCETRATION (test 28.4 G/DL 32.7-35.1 L code = MCHC) RED CELL DISTRIBUTION WIDTH 17.8 % 12.2-16.4 H (test code = RDW) RED CELL DISTRIBUTION WIDTH 62.4 fL 36.4-46.3 H (test code = RDW-SD) PLATELET COUNT (test code = PLT) 418 K/mm3 155-337 H MEAN PLATELET VOLUME (test code 10.6 fL 6.8-11.2 N = MPV) GRANULOCYTE % (test code = GR%) 43.7 % 37.8-82.6 N IMMATURE GRANULOCYTE % (test 0.5 % 0.0-2.0 N code = IG%) LYMPHOCYTE % (test code = LY%) 39.7 % 14.1-45.4 N MONOCYTE % (test code = MO%) 10.9 % 2.5-11.7 N EOSINOPHIL % (test code = EO%) 4.5 % 0.0-6.2 N BASOPHIL % (test code = BA%) 0.7 % 0.0-2.1 N NUCLEATED RBC % (test code = 0.0 /100WBC% 0.0-1.0 N NRBC%) GRANULOCYTE # (test code = GR#) 2.40 k/mm3 2.0-13.7 N IMMATURE GRANULOCYTE # (test 0.03 K/mm3 0.00-0.03 N code = IG#) LYMPHOCYTE # (test code = LY#) 2.19 K/mm3 0.6-3.8 N MONOCYTE # (test code = MO#) 0.60 K/mm3 0.11-0.59 H EOSINOPHIL # (test code = EO#) 0.25 K/mm3 0.0-0.4 N BASOPHIL # (test code = BA#) 0.04 K/mm3 0.0-0.1 N NUCLEATED RBC # (test code = 0.00 K/mm3 0.0-0.05 N NRBC#) RPR [id number] 18:30:00 Test Item Value Reference Range Interpretation Comments RPR TITER (test code = RPRT) AB HIV 1 18:30:00 Test Item Value Reference Range Interpretation Comments AB HIV 1 2 NonReactive SREEN NR This i s a screening (test code = test only A [id number]) Non-Reactive te st result does not exclude the possibility of exposure to or infection with HIV. HIV antibodies and/orantigen m ay be undetectable in some stages of infection.Curre ntly available assay s for the detection o f p24 antigenand/or antibodies to H IV-1 and/or HIV-2 ma y not detect allinfec justice individuals. HIV-1/HIV-2 differentiation testing will be reflexedautomat ically per pathologist approved reflex protocols onall Reactive test r esults. VITAMIN [id number] 15:34:00 Test Item Value Reference Range Interpretation Comments VITAMIN B12 (test code = VITB12) 660 PG/ML 183-986 N FOLIC [id number] 15:34:00 Test Item Value Reference Range Interpretation Comments FOLIC ACID (test code = FOL) 12.81 NG/ML 3.10-17.50 N COMPREHENSIVE METABOLIC [id number] 15:08:00 Test Item Value Reference Range Interpretation Comments SODIUM (test code = 140.0 mmol/L 133-144 N NA) POTASSIUM (test code 3.4 mmol/L 3.5-5.1 L = K) CHLORIDE (test code 109 mmol/L 95-105 H = CL) CARBON DIOXIDE (test 26 mmol/L 21-32 N code = CO2) ANION GAP (test code 5.0 GAP calc 4.0-15.0 N = GAP) GLUCOSE (test code = 97 MG/DL 70-110 N GLU) BLOOD UREA NITROGEN 1 MG/DL 7-18 L (test code = BUN) GLOMERULAR 152 estGFR >60 The estimated FILTRATION RATE glomerular (test code = GFR) filtration rate is computed usingpatient ra ce, age, sex, and s brandyn creatinine. If any of theneeded da ta elements are mi ssing the Laboratory can notcompute an estimation of t he glomerular filtration rate .The GFR value units = ml/min/1.73 met er squared. EstimatedGFR va lues above 60 should be interpreted as >60, not anexact number.--- DRUG DOSAGE ALERT -- - Drug dosage adjustments uti lize different calculationpara meter s. CREATININE (test 0.50 MG/DL 0.55-1.30 L Results may be code = CREAT) depressed if p atient is takingN-Acetylc ystei ne (NAC) and Metamizole (Dipyrone). TOTAL PROTEIN (test 6.2 G/DL 6.4-8.2 L code = PROT) ALBUMIN (test code = 2.4 G/DL 3.4-5.0 L ALB) ALBUMIN/GLOBULIN 0.6 RATIO 1.2-2.2 L RATIO (test code = A/G) CALCIUM (test code = 8.3 MG/DL 8.5-10.1 L CA) BILIRUBIN TOTAL 0.79 MG/DL 0.00-1.00 N (test code = BILT) BILIRUBIN DIRECT 0.49 MG/DL 0.00-0.30 H (test code = BILD) BILIRUBIN INDIRECT 0.30 MG/DL 0.2-1.3 N (test code = BILIND) SGOT/AST (test code 82 Unit/L 15-37 H = AST) SGPT/ALT (test code 64 Unit/L 12-78 N = ALT) ALKALINE PHOSPHATASE 159 Unit/L 45-117 H TOTAL (test code = ALKP) INDEX HEMOLYSIS 1 NORMAL <10 1 NORMAL (test code = MG Index/DL HEMINDEX) INDEX ICTERIC (test 1 NORMAL <2 MG 1 NORMAL code = ICTINDEX) Index/DL INDEX LIPEMIA (test 1 NORMAL <50 1 NORMAL code = LIPINDEX) MG Index/DL COMPREHENSIVE METABOLIC [id number] 15:03:00 Test Item Value Reference Range Interpretation Comments SODIUM (test code = NA) 140.0 mmol/L 133-144 N POTASSIUM (test code = K) 3.4 mmol/L 3.5-5.1 L CHLORIDE (test code = CL) 109 mmol/L 95-105 H CARBON DIOXIDE (test code 26 mmol/L 21-32 N = CO2) ANION GAP (test code = 5.0 GAP calc 4.0-15.0 N GAP) GLUCOSE (test code = GLU) 97 MG/DL 70-110 N BLOOD UREA NITROGEN (test 1 MG/DL 7-18 L code = BUN) CREATININE (test code = MG/DL 0.55-1.30 CREAT) TOTAL PROTEIN (test code G/DL 6.4-8.2 = PROT) ALBUMIN (test code = ALB) 2.4 G/DL 3.4-5.0 L ALBUMIN/GLOBULIN RATIO RATIO 1.2-2.2 (test code = A/G) CALCIUM (test code = CA) 8.3 MG/DL 8.5-10.1 L BILIRUBIN TOTAL (test MG/DL 0.00-1.00 code = BILT) BILIRUBIN DIRECT (test MG/DL 0.00-0.30 code = BILD) BILIRUBIN INDIRECT (test MG/DL 0.2-1.3 code = BILIND) SGOT/AST (test code = Unit/L 15-37 AST) SGPT/ALT (test code = Unit/L 12-78 ALT) ALKALINE PHOSPHATASE Unit/L 45-117 TOTAL (test code = ALKP) INDEX HEMOLYSIS (test 1 NORMAL <10 MG 1 NORMAL code = HEMINDEX) Index/DL INDEX ICTERIC (test code 1 NORMAL <2 MG 1 NORMAL = ICTINDEX) Index/DL INDEX LIPEMIA (test code 1 NORMAL <50 MG 1 NORMAL = LIPINDEX) Index/DL CBC W/AUTO [id number] 14:42:00 Test Item Value Reference Range Interpretation Comments WHITE BLOOD CELL (test code = 6.0 K/mm3 4.1-12.1 N WBC) RED BLOOD CELL (test code = RBC) 3.33 M/mm3 3.8-5.5 L HEMOGLOBIN (test code = HGB) 9.0 G/DL 10.6-15.8 L HEMATOCRIT (test code = HCT) 31.3 % 31.8-47.4 L MEAN CELL VOLUME (test code = 94.0 fL 80.1-101.1 N MCV) MEAN CELL HGB (test code = MCH) 27.0 pg 25.3-35.3 N MEAN CELL HGB CONCETRATION (test 28.8 G/DL 32.7-35.1 L code = MCHC) RED CELL DISTRIBUTION WIDTH 18.0 % 12.2-16.4 H (test code = RDW) RED CELL DISTRIBUTION WIDTH 62.1 fL 36.4-46.3 H (test code = RDW-SD) PLATELET COUNT (test code = PLT) 363 K/mm3 155-337 H MEAN PLATELET VOLUME (test code 10.3 fL 6.8-11.2 N = MPV) GRANULOCYTE % (test code = GR%) 61.5 % 37.8-82.6 N IMMATURE GRANULOCYTE % (test 0.3 % 0.0-2.0 N code = IG%) LYMPHOCYTE % (test code = LY%) 24.8 % 14.1-45.4 N MONOCYTE % (test code = MO%) 10.7 % 2.5-11.7 N EOSINOPHIL % (test code = EO%) 2.2 % 0.0-6.2 N BASOPHIL % (test code = BA%) 0.5 % 0.0-2.1 N NUCLEATED RBC % (test code = 0.0 /100WBC% 0.0-1.0 N NRBC%) GRANULOCYTE # (test code = GR#) 3.69 k/mm3 2.0-13.7 N IMMATURE GRANULOCYTE # (test 0.02 K/mm3 0.00-0.03 N code = IG#) LYMPHOCYTE # (test code = LY#) 1.49 K/mm3 0.6-3.8 N MONOCYTE # (test code = MO#) 0.64 K/mm3 0.11-0.59 H EOSINOPHIL # (test code = EO#) 0.13 K/mm3 0.0-0.4 N BASOPHIL # (test code = BA#) 0.03 K/mm3 0.0-0.1 N NUCLEATED RBC # (test code = 0.00 K/mm3 0.0-0.05 N NRBC#) LIPID PROFILE (CORONARY RISK)2020-05-11 07:32:00 Test Item Value Reference Range Interpretation Comments TRIGLYCERIDES (test 76 MG/DL 0-150 N Results may be code = TRIG) depressed if patient is takingN-Acetylc yst eine (NAC) and Metamizole (Dipyrone). CHOLESTEROL (test code 100 MG/DL 133-200 L = CHOL) CHOLESTEROL/HDL RATIO 2.85 RATIO >0 REFER ENCE RANGE: (test code = CHOLHDL) MALE FEMALE 1/2 AVG RISK 3.4 3 3.27 AVG RISK 4.97 4. 44 2X AVG RISK 9.55 7.05 3X AV G RISK 23.3 9 11.04 HDL CHOLESTEROL (test 35 MG/DL 40-59 L Result s maybe code = HDL) depressed if patient is taki ng Metamizole(Dipy jana e). NON-HDL CHOLESTEROL 65 mg/dL <130 Patients with CHD (test code = NHDL) or CHD ri sk LDL: <70 mg/dL nonHDL: <100 mg/dLPatients w ith 2+ risk factors LDL: <130 mg/dL nonHDL: <160 mg/dLPatie nts with 0-1 risk factors LDL: <160 mg/dL nonHDL: <190 mg/dL LIPOPROTEIN LDL (test 50 MG/DL 0-129 N code = LDL) LDL/HDL (test code = 1.42 Ratio 1.48-3.22 Avg L LDL/HD L RISK LDL/HDL) ASSESSMENT1.47 One-half average3.22 Average5.03 Two times average6.14 Three times average INDEX HEMOLYSIS (test 1 NORMAL <10 1 NORMAL code = HEMINDEX) MG Index/DL INDEX ICTERIC (test 1 NORMAL <2 MG 1 NORMAL code = ICTINDEX) Index/DL INDEX LIPEMIA (test 1 NORMAL <50 1 NORMAL code = LIPINDEX) MG Index/DL URINALYSIS [id number] 23:22:00 Test Item Value Reference Range Interpretation Comments UA COLOR (test code = LIGHT-YELLOW YELLOW COLU) DESCRIPT UA APPEARANCE (test code CLEAR DESCRIPT CLEAR = APPU) UA GLUCOSE DIPSTICK (test NORMAL (0) mg/dL 0 (NORMAL) code = DGLUU) UA BILIRUBIN DIPSTICK NEGATIVE (0.0) mg/dL (NEG) 0 (test code = BILU) UA KETONE DIPSTICK (test NEGATIVE (0) mg/dL (NEG) 0 code = KETU) UA SPECIFIC GRAVITY (test 1.002 SG 1.001-1.035 code = SGU) UA BLOOD DIPSTICK (test NEGATIVE (0.00) 0 (NEG) code = SANTANA) mg/dL UA PH DIPSTICK (test code 7.0 pH UNITS 4.6-8.0 = KISHORE) UA PROTEIN DIPSTICK (test NEGATIVE (0) mg/dL <30 (1+) code = PROU) UA UROBILINIOGEN DIPSTICK NORMAL (0) mg/Dl <2.0 (1+) (test code = URO) UA NITRITE DIPSTICK (test NEGATIVE (0) SCREEN NEG code = SAMMY) UA LEUKOCYTE ESTERASE 75 Leuk/mcL (NEG) 0 A DIPSTICK (test code = LEUU) UA WBC (test code = WBCU) 0-3 #WBC/HPF 0-3 UA RBC (test code = RBCU) 0-3 #RBC/HPF 0-3 UA BACTERIA (test code = TRACE >0 /HPF NONE-FEW BACU) UA SQUAMOUS CELLS (test RARE >0 /UL NONE-SQepi code = SQU) UR HCG [id number] 23:22:00 Test Item Value Reference Range Interpretation Comments UR HCG QUAL (test code = HCGQLU) NEG URINALYSIS [id number] 23:22:00 Test Item Value Reference Range Interpretation Comments UA COLOR (test code = LIGHT-YELLOW YELLOW COLU) DESCRIPT UA APPEARANCE (test code CLEAR DESCRIPT CLEAR = APPU) UA GLUCOSE DIPSTICK (test NORMAL (0) mg/dL 0 (NORMAL) code = DGLUU) UA BILIRUBIN DIPSTICK NEGATIVE (0.0) mg/dL (NEG) 0 (test code = BILU) UA KETONE DIPSTICK (test NEGATIVE (0) mg/dL (NEG) 0 code = KETU) UA SPECIFIC GRAVITY (test 1.002 SG 1.001-1.035 code = SGU) UA BLOOD DIPSTICK (test NEGATIVE (0.00) 0 (NEG) code = SANTANA) mg/dL UA PH DIPSTICK (test code 7.0 pH UNITS 4.6-8.0 = KISHORE) UA PROTEIN DIPSTICK (test NEGATIVE (0) mg/dL <30 (1+) code = PROU) UA UROBILINIOGEN DIPSTICK NORMAL (0) mg/Dl <2.0 (1+) (test code = URO) UA NITRITE DIPSTICK (test NEGATIVE (0) SCREEN NEG code = SAMMY) UA LEUKOCYTE ESTERASE 75 Leuk/mcL (NEG) 0 A DIPSTICK (test code = LEUU) UA WBC (test code = WBCU) 0-3 #WBC/HPF 0-3 UA RBC (test code = RBCU) 0-3 #RBC/HPF 0-3 UA BACTERIA (test code = TRACE >0 /HPF NONE-FEW BACU) UA SQUAMOUS CELLS (test RARE >0 /UL NONE-SQepi code = SQU) UR HCG [id number] 23:22:00 Test Item Value Reference Range Interpretation Comments UR HCG QUAL (test NEGATIVE NEG Very dilut e urines with a code = HCGQLU) low specific gravity may notcontain repr esentative levels of hCG. - US ABDOMEN [id number] 22:48:00 Patient Name: BRENDEN CARRILLO Unit No: [id number] EXAMS: CPT CODE: [id number] US ABDOMEN LTD [id number] CLINICAL INFORMATION: Right upper quadrant pain and vomiting. Dictation location: B2 Comparison: No priors. Technique: Real-time grayscalestudy with duplex and/or spectral color Doppler analysis. Findings: Liver: Unremarkable appearance with no focal defect. Hepatopedal portal vein flow. Gallbladder: Normal wall thickness with no filling defect. Common duct: 0.5 cm. Right kidney: Unremarkable. Pancreas: Head and body unremarkable. Tail mostly obscured by bowel gas.. Aorta: Partially obscured by bowel gas. No aneurysmidentified. IVC: Partially obscured by bowel gas. Patent. No apparent ascites. IMPRESSION: 1. No gallbladder or biliary tract pathology identified. 2. Some abdominal anatomy partially obscured by bowel gas artifact. at 2248 Reported and signed by: Loc Chaidez MD CC: Jhon Lopez MD Technologist: Shreya Mejias [id number] D/ ([id number]) Anastasiia Probe: Orig Print D/T: S: 05/10/2020 ( [id number]) Probe: LAZARO Calero NAME: BRENDEN CARRILLO [address] [place] [address] Blvd PHYS: Jhon Larson MD, [place] [address] : 1995 AGE: 25 SEX: F LOC: ARMAAN PHONE #: [phone] EXAM DATE: 05/10/2020 STATUS: PRE ER FAX #: [phone] RAD NO: Page 1 Signed ReportBASIC METABOLIC [id number] 22:41:00 Test Item Value Reference Range Interpretation Comments SODIUM (test code = 137.0 mmol/L 133-144 N NA) POTASSIUM (test code 3.0 mmol/L 3.5-5.1 L = K) CHLORIDE (test code 109 mmol/L 95-105 H = CL) CARBON DIOXIDE (test 22 mmol/L 21-32 N code = CO2) ANION GAP (test code 6.0 GAP calc 4.0-15.0 N = GAP) GLUCOSE (test code = 92 MG/DL 70-110 N GLU) BLOOD UREA NITROGEN 2 MG/DL 7-18 L (test code = BUN) CREATININE (test 0.56 MG/DL 0.55-1.30 N Results may be code = CREAT) depressed if patient is takingN-Acetylc yste ine (NAC) and Metamizole (Dipyrone). CALCIUM (test code = 8.2 MG/DL 8.5-10.1 L CA) INDEX HEMOLYSIS 2 TRACE 10-25 1 NORMAL (test code = MG Index/DL HEMINDEX) INDEX ICTERIC (test 1 NORMAL <2 MG 1 NORMAL code = ICTINDEX) Index/DL INDEX LIPEMIA (test 1 NORMAL <50 MG 1 NORMAL code = LIPINDEX) Index/DL HEPATIC FUNCTION [id number] 22:41:00 Test Item Value Reference Range Interpretation Comments TOTAL PROTEIN (test code = PROT) 7.5 G/DL 6.4-8.2 N ALBUMIN (test code = ALB) 2.7 G/DL 3.4-5.0 L BILIRUBIN TOTAL (test code = BILT) 0.84 MG/DL 0.00-1.00 N BILIRUBIN DIRECT (test code = 0.50 MG/DL 0.00-0.30 H BILD) BILIRUBIN INDIRECT (test code = 0.34 MG/DL 0.2-1.3 N BILIND) SGOT/AST (test code = AST) 120 Unit/L 15-37 H SGPT/ALT (test code = ALT) 90 Unit/L 12-78 H ALKALINE PHOSPHATASE TOTAL (test 200 Unit/L 45-117 H code = ALKP) [id number] 22:41:00 Test Item Value Reference Range Interpretation Comments LIPASE (test code = LIP) 82 Unit/L 114-286 L [id number] 22:41:00 Test Item Value Reference Range Interpretation Comments TROPONIN-I < 0.015 NG/ML 0.000-0.045 N INTERPRET WITH CAUTION, THIS (test code = VALUE EXCEEDS T HE LOWER TROPI) LIMITOF LINEARI TY VERIFICATION ES TABLISHED BY THE LABORATORY. An elevated troponin value alone is not sufficient todi agnose a myocardial infa rction. Rather, the patient'sclinic al presentation (h istory, physical exam) and ECGshould be used in conj unction with troponin in the diagnostic evaluation of s uspected myocardial infa rction. Aserial samplin g protocol is recommended to facilitate theidentificati on of temporal change s in troponin levelscharacter istic of AL. BASIC METABOLIC [id number] 22:38:00 Test Item Value Reference Range Interpretation Comments SODIUM (test code = NA) 137.0 mmol/L 133-144 N POTASSIUM (test code = K) 3.0 mmol/L 3.5-5.1 L CHLORIDE (test code = CL) 109 mmol/L 95-105 H CARBON DIOXIDE (test code 22 mmol/L 21-32 N = CO2) ANION GAP (test code = 6.0 GAP calc 4.0-15.0 N GAP) GLUCOSE (test code = GLU) 92 MG/DL 70-110 N BLOOD UREA NITROGEN (test 2 MG/DL 7-18 L code = BUN) CREATININE (test code = MG/DL 0.55-1.30 CREAT) CALCIUM (test code = CA) 8.2 MG/DL 8.5-10.1 L INDEX HEMOLYSIS (test 2 TRACE 10-25 MG 1 NORMAL code = HEMINDEX) Index/DL INDEX ICTERIC (test code 1 NORMAL <2 MG 1 NORMAL = ICTINDEX) Index/DL INDEX LIPEMIA (test code 1 NORMAL <50 MG 1 NORMAL = LIPINDEX) Index/DL HEPATIC FUNCTION [id number] 22:38:00 Test Item Value Reference Range Interpretation Comments TOTAL PROTEIN (test code = PROT) G/DL 6.4-8.2 ALBUMIN (test code = ALB) 2.7 G/DL 3.4-5.0 L BILIRUBIN TOTAL (test code = BILT) MG/DL 0.00-1.00 BILIRUBIN DIRECT (test code = BILD) MG/DL 0.00-0.30 BILIRUBIN INDIRECT (test code = MG/DL 0.2-1.3 BILIND) SGOT/AST (test code = AST) Unit/L 15-37 SGPT/ALT (test code = ALT) Unit/L 12-78 ALKALINE PHOSPHATASE TOTAL (test Unit/L 45-117 code = ALKP) [id number] 22:38:00 Test Item Value Reference Range Interpretation Comments LIPASE (test code = LIP) 82 Unit/L 114-286 L [id number] 22:38:00 Test Item Value Reference Range Interpretation Comments TROPONIN-I (test code = TROPI) NG/ML 0.000-0.045 CBC W/O [id number] 22:24:00 Test Item Value Reference Range Interpretation Comments WHITE BLOOD CELL (test code = WBC) 6.0 K/mm3 4.1-12.1 N RED BLOOD CELL (test code = RBC) 3.08 M/mm3 3.8-5.5 L HEMOGLOBIN (test code = HGB) 8.3 G/DL 10.6-15.8 L HEMATOCRIT (test code = HCT) 29.9 % 31.8-47.4 L MEAN CELL VOLUME (test code = MCV) 97.1 fL 80.1-101.1 N MEAN CELL HGB (test code = MCH) 26.9 pg 25.3-35.3 N MEAN CELL HGB CONCETRATION (test 27.8 G/DL 32.7-35.1 L code = MCHC) RED CELL DISTRIBUTION WIDTH (test 18.2 % 12.2-16.4 H code = RDW) PLATELET COUNT (test code = PLT) 367 K/mm3 155-337 H MEAN PLATELET VOLUME (test code = 10.4 fL 6.8-11.2 N MPV) - XR CHEST 1 [id number] 22:23:00 FAX: Jhon Das MD [phone] [place]: E St: PRE Patient Name: BRENDEN CARRILLO Unit No: [id number] EXAMS: CPT CODE: [id number] XR CHEST 1 V 21800 EXAM: - XR CHEST 1 V HISTORY: Chest pain. COMPARISON: None available time of interpretation.FINDINGS: Single AP view of the chest is provided. Heart size and vascularity are within normal limits. There is no evidence of a focal consolidation. There is no pleural effusion or pneumothorax. There is no definite acute osseous abnormality. IMPRESSION: No radiographic evidence of acute cardiopulmonary process. at 2223 Reported and signed by: Mitesh Dunn MD CC: Jhon Lopez MD Dictated Date/Time: 05/10/2020 (2222)Technologist: Nataliia Mancera Transcribed Date/Time: 05/10/2020 (2222) By: [email or web address] Orig Print D/T: S: 05/10/2020 (2225) LAZARO Calero NAME: BRENDEN CARRILLO [address] [place] [address] Blvd PHYS: Jhon Deutsch MD, [place] [address] : 1995 AGE: 25 SEX: F LOC: B.ERS PHONE #: [phone] EXAM DATE: 05/10/2020 STATUS: PRE ER FAX #: [phone] RAD NO:DC Dt: PAGE 1 Signed ReportCOMPREHENSIVE METABOLIC PANEL 2019-10-18 20:50:00 Test Item Value Reference Range Interpretation Comments TOTAL PROTEIN 8.0 gm/dL 6.0-8.5 (BEAKER) (test code = 770) ALBUMIN (BEAKER) 4.0 g/dL 3.5-5.0 (test code = 1145) ALKALINE PHOSPHATASE 133 U/L 30-115 H (BEAKER) (test code = 346) BILIRUBIN TOTAL 0.7 mg/dL 0.1-1.3 (BEAKER) (test code = 377) SODIUM (BEAKER) (test 138 meq/L 135-148 code = 381) POTASSIUM (BEAKER) 3.2 meq/L 3.5-5.5 L (test code = 379) CHLORIDE (BEAKER) 102 meq/L 98-106 (test code = 382) CO2 (BEAKER) (test 20 meq/L 20-31 code = 355) BLOOD UREA NITROGEN 5 mg/dL 10-26 L (BEAKER) (test code = 354) CREATININE (BEAKER) 0.83 mg/dL 0.50-1.20 (test code = 358) GLUCOSE RANDOM 101 mg/dL 70-110 (BEAKER) (test code = 652) CALCIUM (BEAKER) 8.8 mg/dL 8.5-10.5 (test code = 697) AST (SGOT) (BEAKER) 215 U/L 5-40 H (test code = 353) ALT (SGPT) (BEAKER) 73 U/L 6-50 H (test code = 347) EGFR (BEAKER) (test INSUFFIC IENT CLINICAL code = 1092) DATA TO CALCULA TE ESTIMATED GFR. Bolter Helper ID - [id number] 20:49:00 Test Item Value Reference Range Interpretation Comments LIPASE (BEAKER) (test code = 749) 29 U/L 8-78 Bolter Helper ID - [id number] SCREEN, [id number] 20:31:00 Test Item Value Reference Range Interpretation Comments TEST URINE (BEAKER) (test Negative code = 583) URINALYSIS W/ [id number] 20:30:00 Test Item Value Reference Range Interpretation Comments COLOR (BEAKER) (test code = 470) Light Yellow CLARITY (BEAKER) (test code = Clear 469) SPECIFIC GRAVITY UA (BEAKER) 1.003 1.001-1.035 (test code = 468) PH UA (BEAKER) (test code = 467) 6.0 5.0-8.0 PROTEIN UA (BEAKER) (test code = Negative Negative 464) GLUCOSE UA (BEAKER) (test code = Negative Negative 365) KETONES UA (BEAKER) (test code = Trace Negative A 371) BILIRUBIN UA (BEAKER) (test code Negative Negative = 462) BLOOD UA (BEAKER) (test code = Small Negative A 461) NITRITE UA (BEAKER) (test code = Negative Negative 465) LEUKOCYTE ESTERASE UA (BEAKER) Small Negative A (test code = 466) UROBILINOGEN UA (BEAKER) (test < mg/dL 0.2-1.0 code = 463) RBC UA (BEAKER) (test code = 1 /HPF 519) WBC UA (BEAKER) (test code = 4 /HPF 520) BACTERIA (BEAKER) (test code = Occasional 517) MUCUS (BEAKER) (test code = Rare 1574) SQUAMOUS EPITHELIAL (BEAKER) 2 /HPF (test code = 516) SOURCE(BEAKER) (test code = 1823) Bolter Helper ID - [auto]Bolter Helper ID - techCBC W/PLT COUNT & AUTO DIFFERENTIAL 2019-10-18 20:21:00 Test Item Value Reference Range Interpretation Comments WHITE BLOOD CELL COUNT 7.8 K/ L 4.0-10.0 (BEAKER) (test code = 775) RED BLOOD CELL COUNT 4.32 M/ L 4.00-5.00 (BEAKER) (test code = 761) HEMOGLOBIN (BEAKER) 9.0 GM/DL 12.0-15.5 L (test code = 410) HEMATOCRIT (BEAKER) 32.3 % 36.0-46.0 L (test code = 411) MEAN CORPUSCULAR VOLUME 74.8 fL 82.0-99.0 L (BEAKER) (test code = 753) MEAN CORPUSCULAR 20.8 pg 27.0-33.0 L HEMOGLOBIN (BEAKER) (test code = 751) MEAN CORPUSCULAR 27.9 GM/DL 32.0-36.0 L HEMOGLOBIN CONC (BEAKER) (test code = 752) RED CELL DISTRIBUTION 21.4 % 12.0-15.0 H WIDTH (BEAKER) (test code = 412) PLATELET COUNT (BEAKER) 238 K/CU MM 150-430 (test code = 756) MEAN PLATELET VOLUME 9.2 fL 6.0-11.5 MPV-Shireen roximately (BEAKER) (test code = 20% po sitive bias 754) due to method change. NUCLEATED RED BLOOD 0 /100 WBC 0-0 CELLS (BEAKER) (test code = 413) NEUTROPHILS RELATIVE 66 % PERCENT (BEAKER) (test code = 429) LYMPHOCYTES RELATIVE 22 % PERCENT (BEAKER) (test code = 430) MONOCYTES RELATIVE 10 % PERCENT (BEAKER) (test code = 431) EOSINOPHILS RELATIVE 1 % PERCENT (BEAKER) (test code = 432) BASOPHILS RELATIVE 0 % PERCENT (BEAKER) (test code = 437) NEUTROPHILS ABSOLUTE 5.15 K/ L 1.80-8.00 COUNT (BEAKER) (test code = 670) LYMPHOCYTES ABSOLUTE 1.73 K/ L 1.48-4.50 COUNT (BEAKER) (test code = 414) MONOCYTES ABSOLUTE 0.80 K/ L 0.00-1.30 COUNT (BEAKER) (test code = 415) EOSINOPHILS ABSOLUTE 0.06 K/ L 0.00-0.50 COUNT (BEAKER) (test code = 416) BASOPHILS ABSOLUTE 0.02 K/ L 0.00-0.20 COUNT (BEAKER) (test code = 417) IMMATURE 1 % 0-0 H GRANULOCYTES-RELATIVE PERCENT (BEAKER) (test code = 9471)
[2021-12-27] MEDS ORDERED: NA CHLORIDE 0.9% 500 ML ONE (11:23)
[2021-12-27] MEDS ORDERED: ACETAMINOPHEN 500 MG TAB ONE (11:23)
[2021-12-27] MEDS ORDERED: NA CHLORIDE 0.9% 2,000 ML ONE (11:23)
--- NOTE | 2021-12-27 11:53 | RAD REPORT ---
EXAM DESCRIPTION: Renato Mondragon (2 Views)12/27/2021 11:46 am CLINICAL HISTORY: Chest pain COMPARISON: None FINDINGS: The lungs appear clear of acute infiltrate. The heart is mildly enlarged. Pacemaker leads are in place. IMPRESSION: No acute abnormalities displayed
[2021-12-27 12:04] LABS: ALT/SGPT 30 U/L (12-78); AST/SGOT 39 U/L (15-37); Albumin 2.8 g/dL (3.4-5.0); Alkaline Phosphatase 143 U/L (45-117); BUN Blood Urea Nitrogen 8 mg/dL (7-18); Bicarbonate 25 mmol/L (21-32); Bilirubin Total 0.7 mg/dL (0.2-1.0); Glucose Level 143 mg/dL (74-106); Potassium 3.3 mmol/L (3.5-5.1); Protein, Total 7.7 g/dL (6.4-8.2); Sodium Level 137 mmol/L (136-145)
[2021-12-27] MEDS ORDERED: CLINDAMYCIN 600MG/D5W 600 MG/50 ML BAG IV ONE (12:09)
[2021-12-27 12:10] LABS: Absolute Lymphocytes (CBC) 0.7 K/uL (0.7-4.9); Hematocrit 31.6 % (36.0-45.0); Lymphocytes % 3.4 % (15.3-44.8); MPV 8.4 fL (7.6-11.3); RBC Red Blood Cell Count 4.35 M/uL (3.86-4.86)
[2021-12-27 12:14] LABS: Protime INR 1.28
--- NOTE | 2021-12-27 12:52 | EDPHYS ---
Physician Documentation [facility] Name: Audelia Whitney Age: 26 yrs Sex: Female : 1995 Arrival Date: 12/27/2021 Time: 10:59 Bed 24 Private MD: ED Physician Jovi Kendrick HPI: 12/27 11:08 This 26 yrs old Female presents to ER via Ambulatory with complaints of Hand Swelling, sm6 Chest Pain. 13:00 The patient or guardian reports decreased range of motion, swelling, tenderness. The sm6 complaints affect the right hand diffusely. Context: Denies any injury.. Onset: The symptoms/episode began/occurred gradually, 4 day(s) ago. Modifying factors: The symptoms are alleviated by nothing, the symptoms are aggravated by movement. Associated signs and symptoms: Pertinent positives: fever, Now making her have chest pressure. , Pertinent negatives: cyanosis distally, decreased sensation distally. The patient has been recently seen by a physician: [facility] yesterday. . 26-year-old female that presents with right arm pain that started 4 days ago and chest pressure that started today and 2 days of fever. Patient denies any injury. Patient states that she woke up Friday morning with the right hand swollen and it has gradually worsened and went up her arm from there. Patient was seen in [facility] yesterday where she states she was told it was sprained and a splint was placed. Patient states the splint was hurting her arm and removed it this morning.. 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 - Social history:: Smoking status: Patient denies any tobacco usage or history of. Patient/guardian denies using alcohol, street drugs, IV drugs, tobacco products. - Hospitalizations: : Patient was only seen in the emergency department, as above. ROS: 11:08 Eyes: Negative for injury, pain, redness, and discharge, ENT: Negative for injury, sm6 pain, and discharge, Neck: Negative for injury, pain, and swelling, Respiratory: Negative for shortness of breath, cough, wheezing, and pleuritic chest pain, Abdomen/GI: Negative for abdominal pain, nausea, vomiting, diarrhea, and constipation, Back: Negative for injury and pain, Neuro: Negative for headache, weakness, numbness, tingling, and seizure, Psych: Negative for depression, anxiety, suicide ideation, homicidal ideation, and hallucinations, Allergy/Immunology: Negative for hives, rash, and allergies, Hematologic/Lymphatic: Negative for swollen nodes, abnormal bleeding, and unusual bruising. 11:08 Cardiovascular: Positive for chest pain, with movement, edema, Negative for orthopnea, acute changes. 11:08 MS/extremity: Positive for erythema, pain, swelling, tenderness, warmth, of the right hand and right arm, Negative for injury or acute deformity, contusion, rash, tingling. 13:17 Constitutional: Positive for fatigue, fever, Negative for poor PO intake, weight loss. sm6 13:17 Skin: Positive for cellulitis, swelling, of the right arm, Negative for abrasions, abscesses, ecchymosis. Exam: 11:08 Constitutional: This is a well developed, obese patient who is awake, alert, and in no sm6 acute distress. 13:22 Constitutional: This is a well developed, well nourished patient who is awake, alert, sm6 and in no acute distress. 13:22 Head/Face: Normocephalic, atraumatic. Cardiovascular: Regular rhythm with a normal S1 and S2. No gallops, murmurs, or rubs. Normal PMI, no JVD. No pulse deficits. Respiratory: Lungs have equal breath sounds bilaterally, clear to auscultation and percussion. No rales, rhonchi or wheezes noted. No increased work of breathing, no retractions or nasal flaring. MS/ Extremity: Pulses equal, no cyanosis. Neurovascular intact. Full, normal range of motion. Neuro: Awake and alert, GCS 15, oriented to person, place, time, and situation. Cranial nerves II-XII grossly intact. Motor strength 5/5 in all extremities. Sensory grossly intact. Cerebellar exam normal. Normal gait. Psych: Awake, alert, with orientation to person, place and time. Behavior, mood, and affect are within normal limits. 13:22 Cardiovascular: Rate: tachycardic, actual rate is 120 bpm, Pulses: Pulses are 3+ in right radial artery. Edema: 1+ edema to level of right wrist, right hand and right fingers. 13:22 ECG was reviewed by the Attending Physician. Sinus Tachycardia at 123. 13:22 Musculoskeletal/extremity: Extremities: noted in the right hand: erythema, pain, swelling, tenderness, Full ROM is painful. , noted in the right arm: swelling, tenderness, Pulses: noted to be 3+ in the right radial artery, the right hand and right arm Sensation intact. Nails: 13:22 Skin: cellulitis, that is moderate, on the right hand. Vital Signs: 11:08 BP 138 / 79; Pulse 124; Resp 28; Temp 101.8; Pulse Ox 97% on R/A; Weight 81.65 kg; ll1 Height 4 ft. 11 in. (149.86 cm); Pain 10/10; 12:00 BP 100 / 52; Pulse 117; Resp 18; Pulse Ox 98% on R/A; ab2 13:22 Pulse 92; Pain 2/10; sm6 13:32 BP 119 / 70; Pulse 111; Resp 17; Temp 98.9; Pulse Ox 99% on R/A; ab2 14:09 BP 123 / 67; Pulse 109; Resp 17; Pulse Ox 97% ; ab2 15:09 BP 118 / 69; Pulse 103; Resp 17; Pulse Ox 99% on R/A; ab2 11:08 Body Mass Index 36.36 (81.65 kg, 149.86 cm) ll1 Michelle Coma Score: 13:22 Eye Response: spontaneous(4). Verbal Response: oriented(5). Motor Response: obeys sm6 commands(6). Total: 15. MDM: 11:08 Patient medically screened. [facility] 13:37 Differential diagnosis: Rule out sepsis versus cellulitis patient has not had any sm6 outpatient p.o. antibiotics. Data reviewed: vital signs, nurses notes, lab test result(s), EKG, I have discussed the patient's presentation/case with the attending Emergency Department Physician;. Data interpreted: cafeteria monitor: Pulse oximetry:. Test interpretation: by ED physician or midlevel provider: ECG. Counseling: I had a detailed discussion with the patient and/or guardian regarding: the historical points, exam findings, and any diagnostic results supporting the discharge/admit diagnosis, lab results, the need for outpatient follow up, to return to the emergency department if symptoms worsen or persist or if there are any questions or concerns that arise at home. Medication response: acetaminophen administration has lowered the patient's temperature. Response to treatment: the patient's symptoms have markedly improved after treatment. ED course: 26-year-old female who was seen yesterday at [place] the ED presented to us due to worsening of right arm swelling and pain. Today we will work patient up due to fever and elevated heart rate for sepsis. Patient has obvious cellulitis to the right hand with mild swelling to the right arm. Patient's white blood count is elevated at 19.5. However, the lactic is normal at 1. Patient received antipyretics IV antibiotics and IV fluids in the ER. After the antipyretics patient states that her chest pressure had resolved and her pain is much decreased. Patient has not been treated with any outpatient oral antibiotics. After discussing this case with attending Dr. Newell we agreed to plan of care to discharge home on oral antibiotics. Discussed with patient in length for any worsening of symptoms worsening of fever worsening of pain or swelling to return immediately to the ER. Patient also advised to follow-up with her PCP who is Dr. Henderson tomorrow for recheck of cellulitis. . 12/27 11:14 Order name: Blood Culture Adult (2) 12/27 11:14 Order name: CBC with Diff 12/27 12:20 Interpretation: Abnormal: WBC 19.5; HGB 10.2; HCT 31.6; SUSANA% 91.6. 12/27 11:14 Order name: CMP; Complete Time: 12:19 12/27 12:21 Interpretation: Abnormal: K 3.3; GLUC 143. 12/27 11:14 Order name: Lactate; Complete Time: 12:19 12/27 12:21 Interpretation: Within normal limits. 12/27 11:14 Order name: Protime (+inr); Complete Time: 12:19 12/27 12:22 Interpretation: Abnormal: PT 14.1. 12/27 11:14 Order name: Ptt, Activated; Complete Time: 12:19 12/27 12:22 Interpretation: Within normal limits. 12/27 11:21 Order name: Chest Pa And Lat (2 Views) XRAY; Complete Time: 12:19 [facility] 12/27 12:19 Interpretation: No acute disease. [facility] 12/27 11:36 Order name: COVID-19 SARS RT PCR (Document "Date of Onset" if Symptomatic); Complete ab2 Time: 13:45 12/27 13:45 Interpretation: Within normal limits. [facility] 12/27 13:55 Order name: CBC Smear Scan EDMN 12/27 11:14 Order name: Accucheck; Complete Time: 11:34 [facility] 12/27 11:14 Order name: Cardiac monitoring; Complete Time: 11:34 [facility] 12/27 11:14 Order name: EKG - Nurse/Tech; Complete Time: 11:34 [facility] 12/27 11:14 Order name: IV Saline Lock - Large Bore; Complete Time: 11:35 [facility] 12/27 11:14 Order name: Labs collected and sent; Complete Time: 11:34 [facility] 12/27 11:14 Order name: O2 Per Protocol; Complete Time: 11:35 [facility] 12/27 11:14 Order name: O2 Sat Monitoring; Complete Time: 11:35 [facility] 12/27 11:14 Order name: EKG; Complete Time: 11:15 [facility] Administered Medications: 11:34 Drug: Tylenol 1000 mg Route: PO; ab2 14:10 Follow up: Response: Temperature is decreased ab2 11:35 Drug: NS 0.9% (30 ml/kg) 30 ml/kg Route: IV; Rate: bolus; Site: left hand; ab2 15:10 Follow up: Response: No adverse reaction; IV Status: Completed infusion ab2 12:07 Drug: Clindamycin 600 mg Route: IVPB; Infused Over: 30 mins; Site: left hand; ab2 14:11 Follow up: Response: No adverse reaction; IV Status: Completed infusion ab2 13:09 Drug: traMADol 50 mg Route: PO; ab2 14:10 Follow up: Response: No adverse reaction ab2 13:09 Drug: Bactrim (trimethoprim-sulfamethoxazole) (160 mg-800 mg (DS) 1 tablet Route: PO; ab2 14:10 Follow up: Response: No adverse reaction ab2 Disposition: 18:15 Co-signature as Attending Physician, Jovi Kendrick MD. ma2 Disposition Summary: 12/27/21 12:52 Discharge Ordered Location: Home 6 Problem: new sm6 Symptoms: have improved sm6 Condition: Fair sm6 Diagnosis - Cellulitis of right upper limb sm6 - Fever, unspecified sm6 Followup: 6 - With: Private Physician - When: 1 - 2 days - Reason: Recheck today's complaints, Continuance of care, Re-evaluation by your physician Discharge Instructions: - Discharge Summary Sheet 6 Forms: - Medication Reconciliation Form 6 - Thank You Letter sm6 - Antibiotic Education sm6 - Prescription Opioid Use sm6 Prescriptions: - Clindamycin HCl 150 mg Oral Capsule - take 1 capsule by ORAL route every 6 hours for 10 days; 40 capsule; Refills: 0, sm6 Product Selection Permitted - Bactrim DS 800-160 mg Oral Tablet - take 1 tablet by ORAL route every 12 hours for 10 days; 20 tablet; Refills: 0, sm6 Product Selection Permitted Signatures: Dispatcher [employer] EDMS Jett Haque PA PA jmm Alzahri, Mohammad, MD MD ma2 Lauren Ardon RN RN ll1 Catarino Guerra Stacey, GAS ENGINE OPERATOR GENERATORS GAS ENGINE OPERATOR GENERATORS sm6 Corrections: (The following items were deleted from the chart) 13:36 13:17 Eyes: Negative for injury, pain, redness, and discharge, ENT: Negative for sm6 injury, pain, and discharge, Neck: Negative for injury, pain, and swelling, Respiratory: Negative for shortness of breath, cough, wheezing, and pleuritic chest pain, Abdomen/GI: Negative for abdominal pain, nausea, vomiting, diarrhea, and constipation, Back: Negative for injury and pain, Neuro: Negative for headache, weakness, numbness, tingling, and seizure, Psych: Negative for depression, anxiety, suicide ideation, homicidal ideation, and hallucinations, Allergy/Immunology: Negative for hives, rash, and allergies, Hematologic/Lymphatic: Negative for swollen nodes, abnormal bleeding, and unusual bruising, sm6 13:36 13:17 Cardiovascular: Positive for chest pain, with movement, edema, Negative for sm6 orthopnea, acute changes, sm6 13:36 13:17 MS/extremity: Positive for erythema, pain, swelling, tenderness, warmth, of the sm6 right hand and right arm, Negative for injury or acute deformity, contusion, rash, tingling, sm6 13:37 13:22 Constitutional: This is a well developed, obese patient who is awake, alert, and sm6 in no acute distress. sm6
--- NOTE | 2021-12-27 12:52 | ER ---
Nurse's Notes [facility] Name: Audelia Whitney Age: 26 yrs Sex: Female : 1995 Arrival Date: 12/27/2021 Time: 10:59 Bed 24 Private MD: Diagnosis: Cellulitis of right upper limb;Fever, unspecified Presentation: 12/27 11:08 Chief complaint: Patient states: R hand pain and swelling since Friday. Throat and CP ll1 since Friday. Was seen yesterday at [place] for these complaints. Nothing specific found. Coronavirus screen: Vaccine status: Patient reports being unvaccinated. Client denies travel out of the [place] in the last 14 days. chills, fatigue, fever, headache, muscle pain, nausea, sore throat, Client presents with at least one sign or symptom that may indicate coronavirus-19. Standard/surgical mask placed on the client. Ebola Screen: Patient denies travel to an Ebola-affected area in the 21 days before illness onset. Initial Sepsis Screen: Does the patient meet any 2 criteria? RR > 20 per min. Temp <36.0*C (96.8*F)) or > 38.3*C (100.9*F). HR > 90 bpm. Yes Does the patient have a suspected source of infection? Yes: Skin breakdown/wound. Risk Assessment: Do you want to hurt yourself or someone else? Patient reports no desire to harm self or others. Onset of symptoms was December 24, 2021. 11:08 Method Of Arrival: Ambulatory ll1 11:08 Acuity: FOZIA 2 ll1 Triage Assessment: 11:11 General: Appears ill, Behavior is cooperative, appropriate for age. Pain: Complains of ll1 pain in hand Quality of pain is described as aching, throbbing. EENT: Reports pain when swallowing. Cardiovascular: Reports chest pain. Derm: Reports pain, swelling, warmth to R hand. Musculoskeletal: Reports pain in right hand. 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 - Social history:: Smoking status: Patient denies any tobacco usage or history of. Patient/guardian denies using alcohol, street drugs, IV drugs, tobacco products. - Hospitalizations: : Patient was only seen in the emergency department, as above. Screenin:12 Abuse screen: Denies threats or abuse. Denies injuries from another. Nutritional ab2 screening: No deficits noted. Tuberculosis screening: No symptoms or risk factors identified. Fall Risk None identified. Assessment: 11:11 General: Appears in no apparent distress. uncomfortable, Behavior is calm, cooperative, ab2 appropriate for age. Pain: Complains of pain in chest and right hand Pain does not radiate. Pain began 2-3 days ago. Neuro: Level of Consciousness is awake, alert, obeys commands, Oriented to person, place, time, situation, Appropriate for age Steel Plate Printer are equal bilaterally Moves all extremities. Gait is steady, Speech is normal, Facial symmetry appears normal. Cardiovascular: Reports chest pain, Heart tones S1 S2 present Patient's skin is warm and dry. Rhythm is sinus tachycardia. Respiratory: Airway is patent Respiratory effort is even, unlabored, Respiratory pattern is regular, symmetrical, Breath sounds are clear bilaterally. GI: No deficits noted. No signs and/or symptoms were reported involving the gastrointestinal system. : No deficits noted. No signs and/or symptoms were reported regarding the genitourinary system. Derm: Skin temperature is warm. Musculoskeletal: Range of motion: limited in right hand Swelling present in right hand. 12:01 Reassessment: Patient appears in no apparent distress at this time. Pt returned from ab2 xray. Fluids infusing, pt tolerating well. denies any needs at this time. 14:10 Reassessment: Patient appears in no apparent distress at this time. Fluids still ab2 infusing, patient tolerating well. Vital Signs: 11:08 BP 138 / 79; Pulse 124; Resp 28; Temp 101.8; Pulse Ox 97% on R/A; Weight 81.65 kg; ll1 Height 4 ft. 11 in. (149.86 cm); Pain 10/10; 12:00 BP 100 / 52; Pulse 117; Resp 18; Pulse Ox 98% on R/A; ab2 13:22 Pulse 92; Pain 2/10; sm6 13:32 BP 119 / 70; Pulse 111; Resp 17; Temp 98.9; Pulse Ox 99% on R/A; ab2 14:09 BP 123 / 67; Pulse 109; Resp 17; Pulse Ox 97% ; ab2 15:09 BP 118 / 69; Pulse 103; Resp 17; Pulse Ox 99% on R/A; ab2 11:08 Body Mass Index 36.36 (81.65 kg, 149.86 cm) ll1 Michelle Coma Score: 13:22 Eye Response: spontaneous(4). Verbal Response: oriented(5). Motor Response: obeys sm6 commands(6). Total: 15. ED Course: 10:59 Patient arrived in ED. rg4 11:00 Arm band placed on Patient placed in an exam room, on a stretcher. ll1 11:05 Rosmery Alba NP is PHCP. sm6 11:05 Jovi Kendrick MD is Attending Physician. 6 11:11 Triage completed. ll1 11:11 Catarino Guerra is Primary Nurse. ab2 11:13 Patient has correct armband on for positive identification. Bed in low position. Call ab2 light in reach. Side rails up X2. monitoring tech on. Pulse ox on. NIBP on. 11:13 No provider procedures requiring assistance completed. Patient maintains SpO2 ab2 saturation greater than 95% on room air. 11:34 Blood Culture Adult (2) Sent. ab2 11:34 CBC with Diff Sent. ab2 11:34 CMP Sent. ab2 11:34 Lactate Sent. ab2 11:34 Protime (+inr) Sent. ab2 11:34 Ptt, Activated Sent. ab2 11:48 Chest Pa And Lat (2 Views) XRAY In Process Unspecified. EDMS 11:54 COVID-19 SARS RT PCR (Document "Date of Onset" if Symptomatic) Sent. ab2 15:10 IV discontinued, intact, bleeding controlled, No redness/swelling at site. Pressure ab2 dressing applied. Administered Medications: 11:34 Drug: Tylenol 1000 mg Route: PO; ab2 14:10 Follow up: Response: Temperature is decreased ab2 11:35 Drug: NS 0.9% (30 ml/kg) 30 ml/kg Route: IV; Rate: bolus; Site: left hand; ab2 15:10 Follow up: Response: No adverse reaction; IV Status: Completed infusion ab2 12:07 Drug: Clindamycin 600 mg Route: IVPB; Infused Over: 30 mins; Site: left hand; ab2 14:11 Follow up: Response: No adverse reaction; IV Status: Completed infusion ab2 13:09 Drug: traMADol 50 mg Route: PO; ab2 14:10 Follow up: Response: No adverse reaction ab2 13:09 Drug: Bactrim (trimethoprim-sulfamethoxazole) (160 mg-800 mg (DS) 1 tablet Route: PO; ab2 14:10 Follow up: Response: No adverse reaction ab2 Outcome: 12:52 Discharge ordered by . sm6 15:10 Discharged to home ambulatory. ab2 15:10 Condition: good 15:10 Discharge instructions given to patient, Instructed on discharge instructions, follow up and referral plans. medication usage, Demonstrated understanding of instructions, follow-up care, medications, Prescriptions given X 2. 15:10 Patient left the ED. ab2 Signatures: Dispatcher [employer] Shagufta Duncan rg4 Lauren Ardon RN RN ll1 Catarino Guerra ab2 Rosmery Alba, ALARM INVESTIGATOR ALARM INVESTIGATOR sm6
[2021-12-27] MEDS ORDERED: TRAMADOL HCL 50 MG TAB ONE (13:09)
[2021-12-27] MEDS ORDERED: SMZ./TMP. 800/160 MG TABLET ONE (13:10)
[2021-12-27 13:54] LABS: Blood Morphology Comment NOTED (NOT SEEN); Platelet Estimate ADEQ; White Blood Cell Scan OK (OK)
[2021-12-27 13:55] LABS: Hypochromasia 1+
[2021-12-27 16:11] VITALS: TEMP 98.9
[2021-12-27 16:13] VITALS: BP 118/69; O2SAT 99
--- NOTE | 2021-12-28 07:46 | EKG ---
Test Date: 2021-12-27 Test Time: 11:10:58 Chemistry Research Assistant: MEASUREMENT RESULTS: Intervals: Rate: 123 ME: 140 QRSD: 76 QT: 330 QTc: 472 [place]: P: 57 ME: 140 QRS: 80 T: 7 INTERPRETIVE STATEMENTS: Sinus tachycardia Nonspecific ST and T wave abnormality Abnormal ECG No previous ECG available for comparison Electronically Signed On 12-28-21 07:42:31 CDT by Gurmeet Mayfield
== END 2021-12-27 15:10 | disposition home or self-care (01) ==
LOC: ER 10:56
DX: L03.113 Cellulitis of right upper limb (principal); R50.9 Fever, unspecified; Z20.822 Contact with and (suspected) exposure to COVID-19; Z95.0 Presence of cardiac pacemaker
CPT/HCPCS: 96365; 93005; 87040 ×2; 85025; 36415; 85610; 83605; 85730; 80053; 71046; 99285; 96366; U0003; J7040; J7030

== ENCOUNTER 2024-12-17 17:28 | Emergency (ER) | payer OTHER ==
[2024-12-17] MEDS ORDERED: NA CHLORIDE 0.9% 1,000 ML ONE (17:57)
[2024-12-17 18:20] LABS: Absolute Basophils 0.1 K/uL (0-0.5); Absolute Eosinophils 0.1 K/uL (0-0.5); Absolute Lymphocytes (CBC) 2.9 K/uL (0.7-4.9); Absolute Monocytes 0.7 K/uL (0.1-1.3); Basophils % 0.7 % (0-1.3); Eosinophils % 0.9 % (0-4.4); Hematocrit 31.7 % (36.0-45.0); Hemoglobin 9.9 g/dL (12.0-15.0); Lymphocytes % 22.9 % (15.3-44.8); MCH 18.5 pg (27.0-35.0); MCHC 31.1 g/dL (32.0-36.0); MCV 59.7 fL (80-100); MPV 8.7 fL (7.6-11.3); Monocytes % 5.2 % (3.3-12.3); Neutrophils % 70.3 % (41.7-73.7); Nucleated Red Blood Cells % 0.1 % (0-0); Platelets 118 thou/uL (152-406); RBC Red Blood Cell Count 5.32 M/uL (3.86-4.86); Red Cell Distribution Width 20.2 % (12.1-15.2)
[2024-12-17 18:27] LABS: D-Dimer 0.245 FEUug/mL (0-0.500); PT Prothrombin Time 13.3 SECONDS (10-13.0); Protime INR 1.18
--- NOTE | 2024-12-17 18:35 | RAD REPORT ---
Procedure: Chest Single View HISTORY: Chest pain COMPARISON: 2021 FINDINGS: The lungs appear clear of acute infiltrate. No significant pleural effusion noted. The heart is mildly enlarged. Pacemaker leads in place. IMPRESSION: No acute abnormality is displayed.
[2024-12-17 18:51] LABS: ALT/SGPT 43 U/L (13-56); Albumin 3.5 g/dL (3.4-5.0); Albumin/Globulin Ratio 0.7 (1.1-1.8); Alkaline Phosphatase 108 U/L (45-117); Anion Gap 13.2 mEq/L (5.0-15.0); BUN Blood Urea Nitrogen 9 mg/dL (7-18); Bicarbonate 24 mEq/L (21-32); Bilirubin Direct 0.2 mg/dL (0-0.2); Bilirubin Indirect, Calculated 0.8 mg/dL (0.2-0.8); Globulin 5.1 g/dL (2.3-3.5); Glomerular Filtration Rate 67 ml/min (=/>90); Glucose Level 118 mg/dL (74-106); Lipase 13 U/L (13-75); NT PRO-BNP 16 pg/mL (<125); Protein, Total 8.6 g/dL (6.4-8.2); Sodium Level 135 mEq/L (136-145)
[2024-12-17 18:52] LABS: AST/SGOT 63 U/L (15-37); Magnesium 1.7 mg/dL (1.6-2.4); Potassium 4.2 mEq/L (3.5-5.1); Troponin High Sensitivity < 3.0 pg/mL (<58.9)
--- NOTE | 2024-12-17 19:15 | RAD REPORT ---
EXAM: Abdominal exam Limited ultrasound CLINICAL HISTORY: Abdominal pain COMPARISON: None FINDINGS: A gallstone is not seen. Gallbladder wall not thickened. Biliary tree normal caliber IMPRESSION: No significant abnormalities displayed
[2024-12-17] MEDS ORDERED: KETOROLAC 30 MG/ML INJ ONE (19:37)
[2024-12-17 19:56] LABS: Specific Gravity 1.027 (1.005-1.030)
[2024-12-17 20:01] LABS: Specific Gravity 1.027 (1.005-1.030); Sqamous Epithelial 20-50 /HPF (None Seen); Urine Bacteria 20-50 /HPF (<20); Urine Bilirubin NEGATIVE (Negative); Urine Blood Trace (Negative); Urine Clarity Extremely Turbid (Clear); Urine Color Yellow (Yellow); Urine Crystals Unidentified Few /HPF (None Seen); Urine Glucose NEGATIVE (Negative); Urine Ketones TRACE (Negative); Urine Micro Reflex YN NO BILL MICROSCOPIC; Urine Mucus 4+ /HPF (None Seen); Urine Nitrite 2+ (Negative); Urine Protein 1+ (Negative); Urine Urobilinogen Normal (Normal); Urine WBC 20-50 /HPF (<5)
[2024-12-17 20:14] LABS: Barbiturates NEGATIVE (NEGATIVE); Benzodiazepines NEGATIVE (NEGATIVE); Cocaine NEGATIVE (NEGATIVE); METHAMPHETAM NEGATIVE (NEGATIVE); Methadone NEGATIVE (NEGATIVE); Opiates NEGATIVE (NEGATIVE); Phencyclidine NEGATIVE (NEGATIVE); THC Cannibis NEGATIVE (NEGATIVE)
--- NOTE | 2024-12-17 20:46 | ER ---
Nurse's Notes [facility] Name: Audelia Whitney Age: 29 yrs Sex: Female : 1995 Arrival Date: 12/17/2024 Time: 17:28 Bed 14 Private MD: Diagnosis: Chest pain, unspecified;UTI/ Urinary tract infection, site not specified;Epigastric pain;Anemia, unspecified Presentation: 12/17 17:40 Chief complaint: Patient states: Chest pain since this evening - RUQ pain. Coronavirus ld1 screen: At this time, the client does not indicate any symptoms associated with coronavirus-19. Ebola Screen: No symptoms or risks identified at this time. Initial Sepsis Screen: Does the patient meet any 2 criteria? No. Patient's initial sepsis screen is negative. Does the patient have a suspected source of infection? No. Patient's initial sepsis screen is negative. Risk Assessment: Do you want to hurt yourself or someone else? Patient reports no desire to harm self or others. Onset of symptoms was December 17, 2024. 17:40 Method Of Arrival: Ambulatory ld1 17:40 Acuity: FOZIA 2 ld1 Triage Assessment: 17:40 General: Appears in no apparent distress. comfortable, Behavior is calm, cooperative, ld1 appropriate for age. Pain: Complains of pain in chest and right upper quadrant Pain does not radiate. Pain currently is 8 out of 10 on a pain scale. Quality of pain is described as throbbing, Pain began suddenly, Is continuous. EENT: No signs and/or symptoms were reported regarding the EENT system. Neuro: Level of Consciousness is awake, alert, obeys commands, Oriented to person, place, time, situation. Cardiovascular: Capillary refill < 3 seconds Patient's skin is warm and dry. Respiratory: Airway is patent Respiratory effort is even, unlabored. GI: Abdomen is round obese. : No signs and/or symptoms were reported regarding the genitourinary system. Derm: No signs and/or symptoms reported regarding the dermatologic system. Musculoskeletal: No signs and/or symptoms reported regarding the musculoskeletal system. Historical: - Allergies: 17:40 No Known Allergies; ld1 - PMHx: 17:40 Anemia; heart arrhythmia; Seizure; ld1 - PSHx: 17:40 pacemaker; ld1 - Immunization history:: Adult Immunizations up to date. - Infectious Disease History:: Denies. - Social history:: Smoking status: Patient denies any tobacco usage or history of. Screenin:57 [facility] ED Fall Risk Assessment (Adult) History of falling in the last 3 months, kc6 including since admission No falls in past 3 months (0 pts) Confusion or Disorientation No (0 pts) Intoxicated or Sedated No (0 pts) Impaired Gait No (0 pts) Mobility Assist Device Used No (0 pt) Altered Elimination No (0 pt) Score/Fall Risk Level 0 - 2 = Low Risk Oriented to surroundings, Maintained a safe environment. Abuse screen: Denies threats or abuse. Denies injuries from another. Nutritional screening: No deficits noted. Tuberculosis screening: No symptoms or risk factors identified. Assessment: 17:57 General: Appears in no apparent distress. uncomfortable, obese, well groomed, well kc6 developed, Behavior is calm, cooperative, appropriate for age. Pain: Complains of pain in chest and right upper quadrant. Neuro: Level of Consciousness is awake, alert, obeys commands, Oriented to person, place, time, situation, Appropriate for age. Cardiovascular: Reports chest pain, palpitations, Heart tones S1 S2 present Capillary refill < 3 seconds Rhythm is sinus tachycardia. Respiratory: Reports cough that is dry, Airway is patent Trachea midline Respiratory effort is even, unlabored, Respiratory pattern is regular, symmetrical. GI: Abdomen is round non-distended, obese, Reports upper abdominal pain, Patient currently denies diarrhea, nausea, vomiting. : No signs and/or symptoms were reported regarding the genitourinary system. EENT: No signs and/or symptoms were reported regarding the EENT system. Derm: No signs and/or symptoms reported regarding the dermatologic system. Skin is intact, is healthy with good turgor, Skin is pink, warm \T\ dry. Musculoskeletal: No signs and/or symptoms reported regarding the musculoskeletal system. Circulation, motion, and sensation intact. Range of motion: intact in all extremities. 19:18 Reassessment: Patient and/or family updated on plan of care and expected duration. Pain br2 level reassessed. Patient is alert, oriented x 3, equal unlabored respirations, skin warm/dry/pink. General: Appears uncomfortable, Behavior is calm, cooperative. Pain: Complains of pain in anterior aspect of left lateral abdomen Pain currently is 7 out of 10 on a pain scale. Neuro: [place]izano Agitation-Sedation Scale (RASS): 0 - Alert and Calm. Vital Signs: 17:40 BP 121 / 56; Pulse 120; Resp 18; Temp 97.3(TE); Pulse Ox 100% on R/A; Weight 86.18 kg; ld1 Height 4 ft. 11 in. ; Pain 8/10; 17:59 BP 164 / 90; Pulse 116; Resp 18 S; Pulse Ox 100% on R/A; kc6 18:45 BP 129 / 82; Pulse 102; Resp 17 S; Pulse Ox 99% on R/A; ld1 19:21 BP 130 / 77; Pulse 102; Resp 18; Pulse Ox 100% on R/A; Pain 7/10; br2 19:58 BP 130 / 88; Pulse 94; Resp 18; Pulse Ox 96% ; br2 20:30 BP 130 / 82; Pulse 90; Resp 18 S; Pulse Ox 100% on R/A; Pain 0/10; br2 17:40 Body Mass Index 38.37 (86.18 kg, 149.86 cm) ld1 17:40 Pain Scale: Adult ld1 19:21 Pain Scale: Adult br2 20:30 Pain Scale: Adult br2 ED Course: 17:32 Patient arrived in ED. al6 17:40 Abdirahman Cintron PA is PHCP. cp 17:40 Heather Lockhart MD is Attending Physician. cp 17:40 Arm band placed on right wrist. EKG completed in triage. Results shown to MD. ld1 17:40 EKG done, by ED staff, reviewed by Abdirahman RONQUILLO. hb 17:42 Triage completed. ld1 17:56 Corrie Saeed, RN is Primary Nurse. kc6 17:56 Missed attempt(s): 20 gauge in right forearm. Missed attempt(s): 20 gauge in left kc6 antecubital area. 17:57 Patient has correct armband on for positive identification. Placed in gown. Bed in low kc6 position. Call light in reach. Side rails up X2. dry box tender on. Pulse ox on. NIBP on. Door closed. Noise minimized. Lights dimmed. Warm blanket given. Pillow given. Verbal reassurance given. 17:57 Patient maintains SpO2 saturation greater than 95% on room air. kc6 18:04 Initial lab(s) drawn, by me, sent to lab. Missed attempt(s): 20 gauge in left db antecubital area. Bleeding controlled, band aid applied, catheter tip intact. 18:06 Missed attempt(s): 22 gauge in right antecubital area. Bleeding controlled, band aid db applied, catheter tip intact. 18:13 Primary Nurse role handed off by Corrie Saeed RN db 18:13 Dena Martin, RN is Primary Nurse. db 18:19 XRAY Chest (1 view) In Process Unspecified. EDMS 18:24 Inserted saline lock: 18 gauge in right antecubital area, using aseptic technique. jb4 19:06 US Abdomen Limited: liver/gallbladder In Process Unspecified. EDMS 21:03 IV discontinued, intact, bleeding controlled, No redness/swelling at site. Pressure br2 dressing applied. 21:04 No provider procedures requiring assistance completed. br2 Administered Medications: 18:25 Drug: NS 0.9% IV 1000 ml IV at 1 bolus Per protocol; to be given as a bolus over 60 kc6 minutes Route: IV; Rate: 1 bolus; Site: right antecubital; 19:30 Follow up: Response: No adverse reaction; IV Status: Completed infusion; IV Intake: br2 1000ml 19:35 Drug: Ketorolac IVP 30 mg IVP once Route: IVP; Site: right antecubital; br2 21:05 Follow up: Response: Pain is decreased br2 Intake: 19:30 IV: 1000ml; Total: 1000ml. br2 Outcome: 20:45 Discharge ordered by MD. cp 21:03 Discharged to home ambulatory, br2 21:03 Condition: improved 21:03 Discharge instructions given to patient, Instructed on discharge instructions, follow up and referral plans. Demonstrated understanding of instructions, follow-up care, medications, Prescriptions given X 3, 21:05 Patient left the ED. br2 Signatures: Dispatcher [employer] EDMS Abdirahman Cintron PA PA cp Baxter, Heather, RN RN Romero Espinoza RN RN jb4 Staci Villarreal RN RN ld1 Correi Saeed RN RN kc6 Dena Martin, [facility] VINCENT db Samantha Xiao RN RN br2 Vanessa Hummel al6 Corrections: (The following items were deleted from the chart) 17:43 17:40 BP 121 / 56; Pulse 84bpm; Resp 18bpm; Pulse Ox 100% RA; Temp 97.3F Temporal; ld1 86.18 kg; Height 4 ft. 11 in.; BMI: 38.3; Pain 8/10, Adult; ld1
--- NOTE | 2024-12-17 20:46 | EDPHYS ---
Physician Documentation [facility] Name: Audelia Whitney Age: 29 yrs Sex: Female : 1995 Arrival Date: 12/17/2024 Time: 17:28 Bed 14 Private MD: ED Physician Heather Lockhart HPI: 12/17 18:00 This 29 yrs old [place] Female presents to ER via Ambulatory with complaints of Chest cp Pain, Abdominal Pain. 18:00 The patient or guardian reports chest pain that is located primarily in the substernal cp area, epigastric area. The pain does not radiate. 18:00 Associated signs and symptoms: Pertinent negatives: cough, dizziness, lower extremity cp pain, lower extremity swelling, lightheadedness, syncope, vomiting. 18:00 The chest pain is described as throbbing. cp 18:00 Duration: The patient or guardian reports a single episode, that is still ongoing, and cp worsening. Severity of pain: in the emergency department the pain is unchanged despite home interventions. Historical: - Allergies: 17:40 No Known Allergies; ld1 - PMHx: 17:40 Anemia; heart arrhythmia; Seizure; ld1 - PSHx: 17:40 pacemaker; ld1 - Immunization history:: Adult Immunizations up to date. - Infectious Disease History:: Denies. - Social history:: Smoking status: Patient denies any tobacco usage or history of. ROS: 18:05 Constitutional: Negative for body aches, chills, fever, poor PO intake, cp 18:05 Eyes: Negative for injury, pain, redness, and discharge, cp 18:05 ENT: Negative for drainage from ear(s), ear pain, sore throat, difficulty swallowing, difficulty handling secretions, 18:05 Cardiovascular: Positive for chest pain, 18:05 Respiratory: Positive for shortness of breath, Negative for cough, wheezing, 18:05 Abdomen/GI: Positive for abdominal pain, of the epigastric area and right upper quadrant, Negative for diarrhea, constipation, active vomiting, 18:05 Neuro: Negative for dizziness, headache, weakness, 18:05 All other systems are negative, Exam: 17:48 ECG was reviewed by the Attending Physician. cp 18:10 Constitutional: The patient appears in no acute distress, alert, awake, cp non-diaphoretic, non-toxic, well developed, well nourished, obese, uncomfortable, 18:10 Head/Face: Normocephalic, atraumatic. cp 18:10 Eyes: Periorbital structures: appear normal, Conjunctiva: normal, no exudate, no injection, Sclera: no appreciated abnormality, Lids and lashes: appear normal, bilaterally, 18:10 ENT: External ear(s): are unremarkable, Nose: is normal, Mouth: Lips: moist, Oral mucosa: pink and intact, moist, Posterior pharynx: Airway: no evidence of obstruction, patent, 18:10 Chest/axilla: Inspection: normal, Palpation: crepitus, is not appreciated, tenderness, that is moderate, of the xiphoid area, 18:10 Cardiovascular: Rate: tachycardic, actual rate is 120 bpm, Rhythm: regular, Edema: is not appreciated, JVD: is not appreciated, 18:10 Respiratory: the patient does not display signs of respiratory distress, Respirations: normal, no use of accessory muscles, no retractions, labored breathing, is not present, Breath sounds: are clear throughout, no decreased breath sounds, no stridor, no wheezing, 18:10 Abdomen/GI: Inspection: abdomen appears normal, Bowel sounds: active, all quadrants, Palpation: soft, in all quadrants, moderate abdominal tenderness, in the epigastric area and right upper quadrant, 18:10 Back: CVA tenderness, is absent, 18:10 Skin: cellulitis, is not appreciated, no rash present. 18:10 Neuro: Orientation: to person, place \T\ time. Mentation: is normal, Motor: moves all fours, strength is normal, Vital Signs: 17:40 BP 121 / 56; Pulse 120; Resp 18; Temp 97.3(TE); Pulse Ox 100% on R/A; Weight 86.18 kg; ld1 Height 4 ft. 11 in. ; Pain 8/10; 17:59 BP 164 / 90; Pulse 116; Resp 18 S; Pulse Ox 100% on R/A; kc6 18:45 BP 129 / 82; Pulse 102; Resp 17 S; Pulse Ox 99% on R/A; ld1 19:21 BP 130 / 77; Pulse 102; Resp 18; Pulse Ox 100% on R/A; Pain 7/10; br2 19:58 BP 130 / 88; Pulse 94; Resp 18; Pulse Ox 96% ; br2 20:30 BP 130 / 82; Pulse 90; Resp 18 S; Pulse Ox 100% on R/A; Pain 0/10; br2 17:40 Body Mass Index 38.37 (86.18 kg, 149.86 cm) ld1 17:40 Pain Scale: Adult ld1 19:21 Pain Scale: Adult br2 20:30 Pain Scale: Adult br2 MDM: 17:40 Medical Screening Exam initiated cp 12/18 20:24 Differential diagnosis: acute pericarditis, cholecystitis, Cholelithiasis pancreatitis, cp pleurisy, pneumonia, pneumothorax, pulmonary embolus. Data reviewed: vital signs, nurses notes, lab test result(s), EKG, radiologic studies, plain films, ultrasound, and as a result, I will discharge patient. I considered the following discharge prescriptions or medication management in the emergency department Medications were administered in the Emergency Department. See MAR. Independent interpretation of the following test(s) in the Emergency Department EKG: See my EKG interpretation above. Counseling: I had a detailed discussion with the patient and/or guardian regarding the historical points, exam findings, and any diagnostic results supporting the discharge/admit diagnosis, lab results, radiology results, to return to the emergency department if symptoms worsen or persist or if there are any questions or concerns that arise at home. 12/17 17:56 Order name: Basic Metabolic Panel; Complete Time: 19:22 12/17 19:23 Interpretation: Normal except: NA 135; GLUC 118; CRE 1.15; GFR 67. 12/17 17:56 Order name: CBC with Diff; Complete Time: 18:37 12/17 18:37 Interpretation: Normal except: WBC 12.80; RBC 5.32; HGB 9.9; HCT 31.7; MCV 59.7; MCH cp 18.5; MCHC 31.1; PLT 118; RDW 20.2; NEUT A 9.0. 12/17 17:56 Order name: D-Dimer; Complete Time: 18:37 cp 12/17 17:56 Order name: LFT's; Complete Time: 19:22 cp 12/17 19:23 Interpretation: Normal except: AST 63; TP 8.6; GLOB 5.1; A/G 0.7. 12/17 17:56 Order name: Magnesium; Complete Time: 19:22 cp 18 17:56 Order name: NT PRO-BNP; Complete Time: 19:22 cp 12/17 17:56 Order name: PT-INR; Complete Time: 18:37 cp 12/17 17:56 Order name: Troponin HS; Complete Time: 19:22 cp 12/17 19:23 Interpretation: Reviewed. cp 12/17 17:56 Order name: Lipase; Complete Time: 19:22 cp 12/17 17:56 Order name: UDS; Complete Time: 20:37 cp 12/17 17:56 Order name: Urinalysis W/Microscopic; Complete Time: 20:37 cp 12/17 20:37 Interpretation: Normal except: [facility] Extremely Turbid; UKET TRACE; UBLD Trace; UPROT 1+; cp UNIT 2+; UESTR 500; UWBC 20-50; URBC 5-10; UBACT 20-50; SQEPI 20-50; MUCUS 4+. 12/17 17:56 Order name: Test, Urine; Complete Time: 20:37 cp 12/17 17:56 Order name: XRAY Chest (1 view); Complete Time: 18:37 cp 18 18:38 Order name: US Abdomen Limited: liver/gallbladder; Complete Time: 19:22 cp 12/17 17:56 Order name: EKG; Complete Time: 17:56 cp 18 17:56 Order name: Cardiac monitoring; Complete Time: 17:56 cp 18 17:56 Order name: EKG - Nurse/Tech; Complete Time: 17:56 cp 12/17 17:56 Order name: IV Saline Lock; Complete Time: 18:25 cp 12/17 17:56 Order name: Labs collected and sent; Complete Time: 18:12 cp 12/17 17:56 Order name: O2 Per Protocol; Complete Time: 17:56 cp 12/17 17:56 Order name: O2 Sat Monitoring; Complete Time: 17:56 cp EC/18 17:48 Rate is 121 beats/min. Rhythm is regular. SD interval is normal. QRS interval is cp normal. QT interval is normal. T waves are Inverted in lead aVR. Interpreted by me. Reviewed by me. Administered Medications: 18:25 Drug: NS 0.9% IV 1000 ml IV at 1 bolus Per protocol; to be given as a bolus over 60 kc6 minutes Route: IV; Rate: 1 bolus; Site: right antecubital; 19:30 Follow up: Response: No adverse reaction; IV Status: Completed infusion; IV Intake: br2 1000ml 19:35 Drug: Ketorolac IVP 30 mg IVP once Route: IVP; Site: right antecubital; br2 21:05 Follow up: Response: Pain is decreased br2 Disposition Summary: 12/17/24 20:45 Discharge Ordered Notes: Location: Home cp Problem: new cp Symptoms: have improved cp Condition: Stable cp Diagnosis - Chest pain, unspecified cp - UTI/ Urinary tract infection, site not specified cp - Epigastric pain cp - Anemia, unspecified cp Followup: cp - With: Private Physician - When: 2 - 3 days - Reason: pain continues Discharge Instructions: - Discharge Summary Sheet cp - Anemia cp - Nonspecific Chest Pain, Adult cp - Chest Wall Pain cp - Urinary Tract Infection, Adult cp Forms: - Medication Reconciliation Form cp - Antibiotic Education cp - Prescription Opioid Use cp - Patient Portal Instructions cp - Leadership Thank You Letter cp Prescriptions: - Pepcid 20 mg Oral Tablet - take 1 tablet ORAL route every 12 hours for 10 days; 20 tablet; Refills: 0, cp Product Selection Permitted - Diclofenac Sodium 75 mg Oral Tablet Sustained Release - take 1 tablet ORAL route 2 times per day; 30 tablet; Refills: 0, Product cp Selection Permitted - Bactrim DS 800-160 mg Oral Tablet - take 1 tablet ORAL route every 12 hours for 7 days; 14 tablet; Refills: 0, cp Product Selection Permitted Signatures: Dispatcher [employer] Abdirahman Leonard PA PA cp Staci Villarreal RN RN ld1 Corrie Saeed RN RN kc6 Samantha Xiao RN RN br2
[2024-12-17 21:24] VITALS: TEMP 97.3
[2024-12-17 21:33] VITALS: BP 130/82; O2SAT 100
== END 2024-12-17 21:05 | disposition home or self-care (01) ==
LOC: ER 17:28
DX: R07.9 Chest pain, unspecified (principal); N39.0 Urinary tract infection, site not specified; D64.9 Anemia, unspecified; R10.13 Epigastric pain; Z95.0 Presence of cardiac pacemaker
CPT/HCPCS: 85025; 81001; 80048; 36415; 83735; 81025; 85610; 85379; 80076; 84484; 83690; 83880; 80307; 71045; 76705; J7030; 93005